=== PATIENT | male | born 1960 | race Caucasian/White ===

== ENCOUNTER 2017-03-22 09:05 | Emergency (ER) | payer MEDICARE, OTHER ==
[~2017-03-22] VITALS: Ht 177.8 cm; Wt 75.0 kg
[~2017-03-22 09:05] MED LIST: ATOR40TA16 PO; BENZ1TAB PO; BUSP5TAB PO; CYMB60CA PO; DULO1CAP2 PO; SAPH10SU3 SL; SERO400T PO; TRAZ50TA12 PO; VENTAER INH; VIAG100T PO
[2017-03-22 09:06] VITALS: BP 135/86; TEMP 98.2; O2SAT 99
[2017-03-22 09:24] VITALS: BP 135/86; PULSE 101; RESP 14; TEMP 98.2; O2SAT 99
--- NOTE | 2017-03-22 09:37 | PD ---
HPI Chief Complaint: Back/ Neck Pain or Injury Time Seen by Provider: 09:26 Travel History International Travel<30 days: No Contact w/Intl Traveler<30days: No Traveled to known affect area: No History of Present Illness HPI 56-year-old male presents to the department with one week history of ongoing lower back pain and spasm. Patient states he helped a friend move 12 sheets of 5/8ths inch sheet rock a week ago, which developed into his current problem. He denies weakness, tingling, or radicular pain in either leg. Pain however is worse this morning upon awakening. He is having difficulty ambulating secondary to discomfort and spasm. He states he can not stand completely upright. His pain is currently an 8 out of 10. He is been trying [id number] medications topically without improvement. He has no known drug allergies. PFSH Past Medical History Bipolar Disorder: Yes Anxiety: Yes Depression: Yes High Cholesterol: Yes Hepatitis: Yes (c) Social History Alcohol Use: No Tobacco Use: Yes (ppd) Substance Use: No Allergies-Medications (Allergen,Severity, Reaction): Coded Allergies: No Known Allergies (Unverified , 03/22/17) Reported Meds & Prescriptions Reported Meds & Active Scripts Active Orphenadrine CR (Orphenadrine Citrate) 100 Mg Tab 100 Mg PO Q12HR Ibuprofen 800 Mg Tab 800 Mg PO Q8H PRN Reported Duloxetine DR (Duloxetine HCl) 30 Mg Capdr 30 Mg PO DAILY Cymbalta DR (Duloxetine HCl) 60 Mg Capdr 60 Mg PO HS Trazodone (Trazodone HCl) 50 Mg Tab 50 Mg PO HS Viagra (Sildenafil Citrate) 100 Mg Tab 100 Mg PO DAILY PRN Seroquel (Quetiapine Fumarate) 400 Mg Tab 800 Mg PO HS Buspirone (Buspirone HCl) 5 Mg Tab 15 Mg PO BID 30 Days Benztropine (Benztropine Mesylate) 1 Mg Tab 1 Mg PO DAILY Atorvastatin (Atorvastatin Calcium) 40 Mg Tab 40 Mg PO DAILY Saphris (Asenapine) 10 Mg Subl 10 Mg SL DAILY Ventolin Hfa 18 GM Inh (Albuterol Sulfate) 90 Mcg/Act Aer 2 Puff INH Q4H PRN Review of Systems Except as stated in HPI: all other systems reviewed are Neg General / Constitutional: No: Fever Eyes: No: Visual changes HENT: No: Headaches Cardiovascular: No: Chest Pain or Discomfort Respiratory: No: Shortness of Breath Gastrointestinal: No: Abdominal Pain Genitourinary: No: Dysuria Musculoskeletal: Positive: Myalgias, Limited ROM, Pain Skin: No Rash Neurologic: No: Weakness Psychiatric: No: Depression Endocrine: No: Polydipsia Hematologic/Lymphatic: No: Easy Bruising Physical Exam Narrative GENERAL: Patient appears in mild to moderate distress. SKIN: Warm and dry. Normal color. Normal turgor. No rash. HEAD: Atraumatic. Normocephalic. EYES: Pupils equal and round. No scleral icterus. No injection or drainage. ENT: No nasal bleeding or discharge. Mucous membranes pink and moist. NECK: Trachea midline. Supple and nontender. CARDIOVASCULAR: Regular rate and rhythm. RESPIRATORY: No accessory muscle use. Clear to auscultation. Breath sounds equal bilaterally. MUSCULOSKELETAL: Extremities without clubbing, cyanosis, or edema. No obvious deformities. Patient has no midline bony tenderness of the lumbar spine, however has bilateral soft tissue tenderness with spasm in the lower lumbar and sacral areas. Straight leg raise pain is negative bilaterally. He is able to dorsiflex and plantarflex normally. Range of motion of the lower lumbar spine is limited secondary to pain only. NEUROLOGICAL: Awake and alert. No obvious cranial nerve deficits. Motor grossly within normal limits. Five out of 5 muscle strength in the arms and legs. Normal speech. PSYCHIATRIC: Appropriate mood and affect; insight and judgment normal. Data Data Last Documented VS Vital Signs Date Time Temp Pulse Resp B/P Pulse Ox O2 Delivery O2 Flow Rate FiO2 03/22/17 09:24 98.2 101 14 135/86 99 MDM Medical Decision Making Medical Screen Exam Complete: Yes Emergency Medical Condition: Yes Differential Diagnosis Lower lumbar strain. Lumbago. Muscle spasm. Narrative Course Patient is medically stable at time of exam. Radiographic imaging is not felt warranted based on the patient's history and physical. Patient will be treated on an outpatient basis with Norflex 100 mg twice a day # 10. Patient also given ibuprofen 800 mg 3 times daily with food. #30. Patient take extra strength Tylenol as well in addition to the above medications. Recommend heat, ice, and stretching as discussed. Patient follow local primary care physician or return to ED with worsening symptoms as needed. Diagnosis Primary Impression: Strain of lumbar region Qualified Code: S39.012A - Strain of lumbar region, initial encounter Referrals: Primary Care Physician Patient Instructions: Acute Low Back Pain (ED), General Instructions, Lower Back Exercises (ED), Muscle Spasm (ED) Additional Instructions: Radiographic imaging is not felt warranted based on the patient's history and physical. Patient will be treated on an outpatient basis with Norflex 100 mg twice a day # 10. Patient also given ibuprofen 800 mg 3 times daily with food. #30. Patient take extra strength Tylenol as well in addition to the above medications. Recommend heat, ice, and stretching as discussed. Patient follow local primary care physician or return to ED with worsening symptoms as needed. Med/Other Pt SpecificInfo: Prescription(s) given Scripts Orphenadrine ER 12 HR (Orphenadrine CR)100 Mg [id number] Mg PO Q12HR #10 TAB Prov:Shima Vazquez MD 03/22/17 Ibuprofen 800 Mg [id number] Mg PO Q8H PRN (Pain/Inflammation) #30 TAB Prov:Shima Vazquez MD 03/22/17 Disposition: 01 DISCHARGE HOME Condition: Stable Be Tony Mar 22, 2017 09:37
[2017-03-22] MEDS ORDERED: ORPH100T99 PO (09:39)
[2017-03-22] MEDS ORDERED: IBUP800T23 PO (09:39)
== END 2017-03-22 10:32 | disposition home or self-care (01) ==
LOC: NEPK 09:05
DX: S39.012A Strain of muscle, fascia and tendon of lower back, initial encounter (principal); F31.9 Bipolar disorder, unspecified; E78.00 Pure hypercholesterolemia, unspecified; F17.210 Nicotine dependence, cigarettes, uncomplicated; X50.0XXA Overexertion from strenuous movement or load, initial encounter; Y93.89 Activity, other specified; Y92.9 Unspecified place or not applicable
CPT/HCPCS: 99283

== ENCOUNTER → 2017-04-11 | Outpatient (CLI) | payer MEDICARE, OTHER ==
[~2017-04-11] MED LIST changes: -BENZ1TAB PO; +IBUP800T23 PO; +ORPH100T99 PO
--- NOTE | 2017-04-12 10:33 | RSPPFT ---
DATE OF PROCEDURE: 04/11/17 COMMENTS: Spirometry with FVC of 4.9, FEV1 of 3.2, FEV1/FVC ratio is normal. Frontal, lateral and oblique is decreased at FEF 25, FEF 50, FEF 75 and FEF 25-75. There is no response after bronchodilator treatment. Lung volumes show residual volume is increased. TLC is normal. Diffusion capacity is mildly decreased. Flow volume loop indicates terminal airways obstruction. IMPRESSION: 1. Mild small airways obstructive lung disease. 2. No response after bronchodilator treatment. 3. Lung volumes show hyperinflation. 4. Mild decrease in diffusion capacity
== END ==
LOC: PHRSP 08:11
PROVIDERS: ATTEND Internal Medicine
DX: J44.9 Chronic obstructive pulmonary disease, unspecified (principal)
CPT/HCPCS: 94060; 94726; 94729

== ENCOUNTER 2017-04-30 08:04 | Emergency (ER) | payer MEDICARE, OTHER ==
[~2017-04-30] VITALS: Ht 177.8 cm; Wt 73.0 kg
[2017-04-30 08:05] VITALS: BP 116/86; PULSE 92; RESP 20; TEMP 98.2; O2SAT 97
--- NOTE | 2017-04-30 08:40 | PD ---
HPI Chief Complaint: Skin Problem Time Seen by Provider: 08:34 Travel History International Travel<30 days: No Contact w/Intl Traveler<30days: No Traveled to known affect area: No History of Present Illness HPI 56-year-old male presents to the ER today with one-day history of raised nodules on his arms, legs, and back area that he states he just noticed overnight. He states they are very itchy and mildly tender. He denies any fevers, shortness of breath, or any other symptoms. He states that he had been using a weed whacker to cut weed a few days ago and did not notice any rash at that time. He denies any previous history of such rash. He denies any other exposures. Modifying Factors: None Associated Signs & Symptoms: Skin rash, nodules Risk Factors: None PFSH Past Medical History Bipolar Disorder: Yes Anxiety: Yes Depression: Yes High Cholesterol: Yes Hepatitis: Yes (c) Social History Alcohol Use: No Tobacco Use: Yes (ppd) Substance Use: No Allergies-Medications (Allergen,Severity, Reaction): Coded Allergies: No Known Allergies (Unverified , 04/30/17) Reported Meds & Prescriptions Reported Meds & Active Scripts Active Orphenadrine CR (Orphenadrine Citrate) 100 Mg Tab 100 Mg PO Q12HR Ibuprofen 800 Mg Tab 800 Mg PO Q8H PRN Reported Duloxetine DR (Duloxetine HCl) 30 Mg Capdr 30 Mg PO DAILY Cymbalta DR (Duloxetine HCl) 60 Mg Capdr 60 Mg PO HS Trazodone (Trazodone HCl) 50 Mg Tab 50 Mg PO HS Viagra (Sildenafil Citrate) 100 Mg Tab 100 Mg PO DAILY PRN Seroquel (Quetiapine Fumarate) 400 Mg Tab 800 Mg PO HS Buspirone (Buspirone HCl) 5 Mg Tab 15 Mg PO BID 30 Days Atorvastatin (Atorvastatin Calcium) 40 Mg Tab 40 Mg PO DAILY Saphris (Asenapine) 10 Mg Subl 10 Mg SL DAILY Ventolin Hfa 18 GM Inh (Albuterol Sulfate) 90 Mcg/Act Aer 2 Puff INH Q4H PRN Review of Systems Except as stated in HPI: all other systems reviewed are Neg Physical Exam Narrative GENERAL: [Well-developed middle age white male patient currently in mild distress. Awake and oriented 3. SKIN: Focused skin assessment warm/dry. There are notable raise erythematous plaques measuring 2-5 cm on the arms, legs, and lower back area. Nonblanching and mildly tender to palpation. HEAD: Atraumatic. Normocephalic. EYES: Pupils equal and round. No scleral icterus. No injection or drainage. ENT: No nasal bleeding or discharge. Mucous membranes pink and moist. NECK: Trachea midline. No JVD. CARDIOVASCULAR: Regular rate and rhythm. No murmur appreciated. RESPIRATORY: No accessory muscle use. Clear to auscultation. Breath sounds equal bilaterally. GASTROINTESTINAL: Abdomen soft, non-tender, nondistended. Hepatic and splenic margins not palpable. MUSCULOSKELETAL: No obvious deformities. No clubbing. No cyanosis. No edema. NEUROLOGICAL: Awake and alert. No obvious cranial nerve deficits. Motor grossly within normal limits. Normal speech. PSYCHIATRIC: Appropriate mood and affect; insight and judgment normal. Data Data Last Documented VS Vital Signs Date Time Temp Pulse Resp B/P Pulse Ox O2 Delivery O2 Flow Rate FiO2 04/30/17 09:05 96 Room Air 04/30/17 08:05 98.2 92 20 116/86 Orders Complete Blood Count With Diff (04/30/17 08:34) Comprehensive Metabolic Panel (04/30/17 08:34) Ecg Monitoring (04/30/17 08:34) Iv Access Insert/Monitor (04/30/17 08:34) Oximetry (04/30/17 08:34) Diphenhydramine Inj (Benadryl Inj) (04/30/17 08:45) Methylprednisolone So Succ Inj (Solumedr (04/30/17 08:45) Sodium Chloride 0.9% Flush (Ns Flush) (04/30/17 08:45) Labs Laboratory Tests Test 04/30/17 08:45 White Blood Count 9.8 TH/MM3 Red Blood Count 4.85 MIL/MM3 Hemoglobin 14.6 GM/DL Hematocrit 42.8 % Mean Corpuscular Volume 88.2 FL Mean Corpuscular Hemoglobin 30.1 PG Mean Corpuscular Hemoglobin 34.1 % Concent Red Cell Distribution Width 14.0 % Platelet Count 189 TH/MM3 Mean Platelet Volume 9.3 FL Neutrophils (%) (Auto) 78.2 % Lymphocytes (%) (Auto) 13.6 % Monocytes (%) (Auto) 6.6 % Eosinophils (%) (Auto) 1.1 % Basophils (%) (Auto) 0.5 % Neutrophils # (Auto) 7.7 TH/MM3 Lymphocytes # (Auto) 1.3 TH/MM3 Monocytes # (Auto) 0.6 TH/MM3 Eosinophils # (Auto) 0.1 TH/MM3 Basophils # (Auto) 0.0 TH/MM3 CBC Comment DIFF FINAL Differential Comment Sodium Level 136 MEQ/L Potassium Level 4.1 MEQ/L Chloride Level 106 MEQ/L Carbon Dioxide Level 23.1 MEQ/L Anion Gap 7 MEQ/L Blood Urea Nitrogen 13 MG/DL Creatinine 0.89 MG/DL Estimat Glomerular Filtration 88 ML/MIN Rate Random Glucose 99 MG/DL Calcium Level 9.1 MG/DL Total Bilirubin 0.7 MG/DL Aspartate Amino Transf 18 U/L (AST/SGOT) Alanine Aminotransferase 19 U/L (ALT/SGPT) Alkaline Phosphatase 96 U/L Total Protein 7.3 GM/DL Albumin 3.9 GM/DL [facility] Medical Decision Making Medical Screen Exam Complete: Yes Emergency Medical Condition: Yes Medical Record Reviewed: Yes Interpretation(s) Laboratory Tests Test 04/30/17 08:45 Neutrophils (%) (Auto) 78.2 % (16.0-70.0) Estimat Glomerular Filtration 88 ML/MIN (>89) Rate Differential Diagnosis Erythematous nodules, rashurticaria versus erythema nodosum versus allergic reaction versus drug eruption Narrative Course Patient was given Benadryl and Solu-Medrol in the ER. Vital signs are stable in the ER. He has no mucous membrane involvement or respiratory symptoms. At this point, I do not see any signs of worsening in symptoms after observation period in the ER. My plan would be to release the patient with follow-up to primary care physician. We will give him continued steroids and Benadryl. Return for any worsening in symptoms as necessary. The plan has been discussed with him and he states understanding. Diagnosis Primary Impression: Urticaria Med/Other Pt SpecificInfo: Prescription(s) given Scripts Methylprednisolone Dosepak (Medrol Dosepak)4 Mg Dspk4 Mg PO DIRECTED #1 DSPK Ref 0 Per Pharmacist direction Prov:Marissa Tom MD 04/30/17 Diphenhydramine HCl (Benadryl Allergy)25 Mg [id number] Mg PO QID PRN (ALLERGIC REACTION) #20 Prov:Marissa Tom MD 04/30/17 Disposition: 01 DISCHARGE HOME Condition: Stable Marissa Tom MD Apr 30, 2017 08:40
[2017-04-30] MEDS ORDERED: methylPREDNISolone SOD SUCC 125 MG/2 ML VIAL IVP ONE (08:45)
[2017-04-30] MEDS ORDERED: diphenhydrAMINE HCL 50 MG/ML VIAL IVP ONE (08:45)
[2017-04-30] MEDS ORDERED: SODIUM CHLORIDE 0.9% FLUSH 10 ML FLUSH IV FLUSH PRN (08:45)
[2017-04-30 09:05] VITALS: O2SAT 96
[2017-04-30 09:06] LABS: AUTOMATED NEUTROPHIL # 7.7 TH/MM3 (1.8-7.7); BASOPHIL % 0.5 % (0.0-2.0); EOSINOPHIL # 0.1 TH/MM3 (0-0.4); EOSINOPHIL % 1.1 % (0.0-4.0); HEMATOCRIT 42.8 % (39.0-51.0); HEMO FLAGS DIFF FINAL; LYMPH % 13.6 % (9.0-44.0); LYMPHOCYTE # 1.3 TH/MM3 (1.0-4.8); MEAN CELL VOLUME 88.2 FL (80.0-100.0); MEAN CORPUSCULAR HEMOGLOBIN 30.1 PG (27.0-34.0); MEAN CORPUSCULAR HGB CONC 34.1 % (32.0-36.0); MONO % 6.6 % (0.0-8.0); NEUT % 78.2 % (16.0-70.0); PLATELET COUNT 189 TH/MM3 (150-450); RED BLOOD COUNT 4.85 MIL/MM3 (4.50-5.90); WHITE BLOOD COUNT 9.8 TH/MM3 (4.0-11.0)
[2017-04-30 09:19] LABS: ALT (GPT) 19 U/L (12-78); ANION GAP 7 MEQ/L (5-15); AST (GOT) 18 U/L (15-37); BICARBONATE 23.1 MEQ/L (21.0-32.0); BLOOD UREA NITROGEN 13 MG/DL (7-18); CHLORIDE 106 MEQ/L (98-107); GLOMERULAR FILTRATION RATE 88 ML/MIN (>89); POTASSIUM 4.1 MEQ/L (3.5-5.1); SODIUM (NA) 136 MEQ/L (136-145)
[2017-04-30 09:22] LABS: ALKALINE PHOSPHATASE 96 U/L (45-117); TOTAL BILIRUBIN ADULT 0.7 MG/DL (0.2-1.0)
[2017-04-30] MEDS ORDERED: MEDR4PAK PO (09:36)
[2017-04-30] MEDS ORDERED: BENA25TA6 PO (09:36)
== END 2017-04-30 10:22 | disposition home or self-care (01) ==
LOC: NEPC 08:04
DX: L50.9 Urticaria, unspecified (principal); F31.9 Bipolar disorder, unspecified; F41.9 Anxiety disorder, unspecified; E78.00 Pure hypercholesterolemia, unspecified; B19.20 Unspecified viral hepatitis C without hepatic coma; F17.200 Nicotine dependence, unspecified, uncomplicated; Z79.899 Other long term (current) drug therapy
CPT/HCPCS: 80053; 85025; 96374; 96375; 99284; J1200; J2930

== ENCOUNTER → 2017-05-01 | Outpatient (CLI) | payer MEDICARE ==
[~2017-05-01] MED LIST changes: +BENA25TA6 PO; +MEDR4PAK PO
--- NOTE | 2017-05-01 19:02 | EKG ---
Date Performed: 05/01/2017 Time Performed: 08:54:06 PTAGE: 56 years EKG: Sinus rhythm NORMAL ECG NO PREVIOUS TRACING DOCTOR: Qamar Pak Interpretating Date/Time 05/01/2017 19:01:21
== END ==
LOC: HCAV 08:41
PROVIDERS: ATTEND Internal Medicine
DX: Z13.6 Encounter for screening for cardiovascular disorders (principal)
CPT/HCPCS: 93005

== ENCOUNTER 2017-12-13 05:04 | Inpatient (IN) | payer MEDICARE, MEDICAID, OTHER ==
[~2017-12-13] VITALS: Ht 175.3 cm; Wt 63.0 kg
[2017-12-13] VITALS (32 sets, daily range): BP systolic 78–165; BP diastolic 55–92; PULSE 63–123; RESP 12–18; TEMP 97.6–98.6; O2SAT 91–100
[~2017-12-13 05:04] MED LIST changes: +IBUP1TAB7 PO; -IBUP800T23 PO; +ORPH100T2 PO; -ORPH100T99 PO
[2017-12-13] MEDS ORDERED: ETOMIDATE 40 MG/20 ML VIAL ONE (05:28)
[2017-12-13] MEDS ORDERED: SODIUM CHLORIDE 0.9% FLUSH 10 ML FLUSH IVF PRN (05:30)
[2017-12-13] MEDS ORDERED: SUCCINYLCHOLINE CHLORIDE 200 MG/10 ML VIAL ONE (05:30)
[2017-12-13] MEDS ORDERED: PROPOFOL 500 MG/50 ML INJ 50 ML ONE (05:38)
[2017-12-13 05:44] LABS: AUTOMATED NEUTROPHIL # 8.5 TH/MM3 (1.8-7.7); BASOPHIL % 0.2 % (0.0-2.0); EOSINOPHIL % 0.4 % (0.0-4.0); HEMATOCRIT 38.9 % (39.0-51.0); HEMOGLOBIN 13.4 GM/DL (13.0-17.0); LYMPH % 15.4 % (9.0-44.0); LYMPHOCYTE # 1.7 TH/MM3 (1.0-4.8); MEAN CELL VOLUME 90.3 FL (80.0-100.0); MEAN CORPUSCULAR HGB CONC 34.4 % (32.0-36.0); MONO % 5.3 % (0.0-8.0); MONOCYTE # 0.6 TH/MM3 (0-0.9); NEUT % 78.7 % (16.0-70.0); PLATELET COUNT 201 TH/MM3 (150-450); RED BLOOD COUNT 4.31 MIL/MM3 (4.50-5.90); RED CELL DISTRIBUTION WIDTH 12.7 % (11.6-17.2); WHITE BLOOD COUNT 10.8 TH/MM3 (4.0-11.0)
[2017-12-13] MEDS ORDERED: ETOMIDATE 20 MG/10 ML VIAL IV PUSH ONE (05:45)
[2017-12-13] MEDS ORDERED: SUCCINYLCHOLINE CHLORIDE 100 MG/5 ML SYRINGE IV PUSH ONE (05:45)
[2017-12-13] MEDS ORDERED: ACTIVATED CHARCOAL LIQUID 25 GM/120 ML BTL NG ONE (05:45)
[2017-12-13] MEDS: PROPOFOL 1000 MG/100 ML INJ 100 ML IV PRN ×4 (05:50→18:49)
[2017-12-13] MEDS ORDERED: SODIUM CHLOR 0.9% 1000 ML INJ 1,000 ML IV ONE ×2 (06:00)
[2017-12-13] MEDS ORDERED: SODIUM CHLOR 0.9% 1000 ML INJ 1,000 ML IV SCH (06:00)
[2017-12-13 06:03] LABS: ALBUMIN 3.8 GM/DL (3.4-5.0); ALT (GPT) 13 U/L (12-78); AST (GOT) 16 U/L (15-37); BICARBONATE 20.6 MEQ/L (21.0-32.0); BLOOD UREA NITROGEN 6 MG/DL (7-18); CALCIUM 8.2 MG/DL (8.5-10.1); CHLORIDE 105 MEQ/L (98-107); CREATININE 0.76 MG/DL (0.60-1.30); GLOMERULAR FILTRATION RATE 106 ML/MIN (>89); GLUCOSE,RANDOM 119 MG/DL (74-106); SODIUM (NA) 137 MEQ/L (136-145)
[2017-12-13 06:04] LABS: BACTERIA, URINE RARE /hpf; BILIRUBIN, URINE NEG (NEG); BLOOD, URINE TRACE (NEG); GLUCOSE,URINE NEG (NEG); HYALINE CAST, URINE 1 /lpf (RARE); KETONE, URINE NEG (NEG); NITRITE,URINE NEG (NEG); URINE COLOR LIGHT-YELLOW (YELLW/STRAW); URINE LEUKOCYTE ESTERASE NEG (NEG)
[2017-12-13 06:06] LABS: ACETAMINOPHEN LESS THAN 2.0 MCG/ML (10.0-30.0); ALKALINE PHOSPHATASE 83 U/L (45-117); TOTAL BILIRUBIN ADULT 0.5 MG/DL (0.2-1.0); TOTAL PROTEIN 7.1 GM/DL (6.4-8.2)
--- NOTE | 2017-12-13 06:15 | RADRPT ---
EXAM DATE/TIME: 12/13/2017 05:45 [facility] COMPARISON: No previous studies available for comparison. INDICATIONS : E-T and O-G tube placement. Syncope MEDICAL HISTORY : None. SURGICAL HISTORY : None. ENCOUNTER: Initial ACUITY: 1 day PAIN SCORE: Non-responsive. LOCATION: Bilateral chest FINDINGS: A single AP supine view of the chest was obtained and demonstrates a nasogastric tube seen coursing t hrough the esophagus into the stomach. The endotracheal tube is not well-visualized and the tip is lo cated at the level of the thoracic inlet. There are no confluent infiltrates or effusions. The heart and mediastinal structures are within normal limits. The soft tissues and bony thorax are unremarkabl e. CONCLUSION: 1. Interval intubation and placement of nasogastric tube. 2. No acute cardiopulmonary disease. Nilesh Barclay MD on December 13, 2017 at 6:09 Board Certified Radiologist. This report was verified electronically.
--- NOTE | 2017-12-13 06:37 | PD ---
HPI Chief Complaint: OD/ Ingestion Time Seen by Provider: 05:25 Travel History International Travel<30 days: No (CHANI) Contact w/Intl Traveler<30days: No (CHANI) Traveled to known affect area: No (CHANI) History of Present Illness HPI Patient is a 57-year-old male who left a suicide note today saying by 2 mother and girlfriend. And took a overdose of Seroquel plus other unknown psych medications. Patient comes in he was alert when the paramedics arrived at his house however he became very somnolent en route and when he arrived to the ER he was in a bizarre paradoxical kind of way his eyes are open but he is not answering my questions he is normally responsive vitals are within normal limits at this time but his tachycardia paradoxical breathing and inability inability to answer questions feels airway is a danger he needs stabilization activated charcoal and admission to the ICU with multiple EKGs review of systems and history of present illness is unable to be obtained because he is very intoxicated with ingestion of unknown substances PFSH Past Medical History Medical History: Unable to Obtain Bipolar Disorder: Yes Anxiety: Yes Depression: Yes High Cholesterol: Yes Hepatitis: Yes (c) Tetanus Vaccination: Unknown Past Surgical History Surgical History: Unable to Obtain Social History Alcohol Use: No Tobacco Use: Yes (ppd) Substance Use: No Allergies-Medications (Allergen,Severity, Reaction): Coded Allergies: No Known Allergies (Unverified Allergy, Unknown, 12/13/17) Reported Meds & Prescriptions Reported Meds & Active Scripts Active Medrol Dosepak (Methylprednisolone) 4 Mg Dspk 4 Mg PO DIRECTED Per Pharmacist direction Benadryl Allergy (Diphenhydramine HCl) 25 Mg Tablet 25 Mg PO QID PRN Orphenadrine CR (Orphenadrine Citrate) 100 Mg Tab 100 Mg PO Q12HR Ibuprofen 800 Mg Tab 800 Mg PO Q8H PRN Reported Duloxetine DR (Duloxetine HCl) 30 Mg Capdr 30 Mg PO DAILY Cymbalta DR (Duloxetine HCl) 60 Mg Capdr 60 Mg PO HS Trazodone (Trazodone HCl) 50 Mg Tab 50 Mg PO HS Viagra (Sildenafil Citrate) 100 Mg Tab 100 Mg PO DAILY PRN Seroquel (Quetiapine Fumarate) 400 Mg Tab 800 Mg PO HS Buspirone (Buspirone HCl) 5 Mg Tab 15 Mg PO BID 30 Days Atorvastatin (Atorvastatin Calcium) 40 Mg Tab 40 Mg PO DAILY Saphris (Asenapine) 10 Mg Subl 10 Mg SL DAILY Ventolin Hfa 18 GM Inh (Albuterol Sulfate) 90 Mcg/Act Aer 2 Puff INH Q4H PRN Review of Systems ROS Limitations: Altered Mental Status, Other: (severely sedated from an overdose of Seroquel plus other psych meds) Except as stated in HPI: all other systems reviewed are Neg Physical Exam Narrative GENERAL: Patient is very somnolent eyes are open however he is not answering questions appears very sedate from ingestion unknown medication SKIN: Warm and dry. HEAD: Atraumatic. Normocephalic. EYES: Pupils equal and round. No scleral icterus. No injection or drainage. Eyes are open extraocular motions are intact bilateral ENT: No nasal bleeding or discharge. Mucous membranes pink and moist. NECK: Trachea midline. No JVD. CARDIOVASCULAR: Tachycardic rate 123 bpm RESPIRATORY: Patient is using subcostal muscles to breathe increased respiratory rate. Almost paradoxical muscle movement with breathing GASTROINTESTINAL: Abdomen soft, non-tender, nondistended. Hepatic and splenic margins not palpable. MUSCULOSKELETAL: Extremities without clubbing, cyanosis, or edema. No obvious deformities. NEUROLOGICAL: No focal deficits at this time however he is severely sedated overdosed on tranquilizers and on unknown sedating meds. Patient localizes pain will go to the [place] into his penis Data Data Last Documented VS Vital Signs Date Time Temp Pulse Resp B/P (MAP) Pulse Ox O2 Delivery O2 Flow Rate FiO2 12/13/17 05:43 107 16 165/85 (111) 100 Ventilator 100 12/13/17 05:32 2.00 12/13/17 05:21 97.9 Orders Orders Complete Blood Count With Diff (12/13/17 05:25) Comprehensive Metabolic Panel (12/13/17 05:25) Urinalysis - C+S If Indicated (12/13/17 05:25) Chest, Single Ap (12/13/17 05:25) Ct Brain W/O Iv Contrast(Rout) (12/13/17 05:25) Iv Access Insert/Monitor (12/13/17 05:25) Ecg Monitoring (12/13/17 05:25) Oximetry (12/13/17 05:25) Sodium Chloride 0.9% Flush (Ns Flush) (12/13/17 05:30) Drug Screen, Random Urine (12/13/17 05:25) Alcohol (Ethanol) (12/13/17 05:25) Salicylates (Aspirin) (12/13/17 05:25) Tylenol (Acetaminophen) (12/13/17 05:25) Etomidate Inj (Amidate Inj) (12/13/17 05:28) Succinylcholine Inj (Quelicin Inj) (12/13/17 05:30) Propofol 500 Mg/50 Ml Inj (Diprivan 500 (12/13/17 05:38) Etomidate Inj (Amidate Inj) (12/13/17 05:45) Propofol 1000 Mg/100 Ml Inj (Diprivan 10 (12/13/17 05:45) Charcoal Activated Liq (Actidose-Aqua Li (12/13/17 05:45) Admit Order (Ed Use Only) (12/13/17 05:45) Succinylcholine Inj (Quelicin Inj) (12/13/17 05:45) Labs Laboratory Tests Test 12/13/17 05:30 White Blood Count 10.8 TH/MM3 Red Blood Count 4.31 MIL/MM3 Hemoglobin 13.4 GM/DL Hematocrit 38.9 % Mean Corpuscular Volume 90.3 FL Mean Corpuscular Hemoglobin 31.0 PG Mean Corpuscular Hemoglobin Concent 34.4 % Red Cell Distribution Width 12.7 % Platelet Count 201 TH/MM3 Mean Platelet Volume 9.0 FL Neutrophils (%) (Auto) 78.7 % Lymphocytes (%) (Auto) 15.4 % Monocytes (%) (Auto) 5.3 % Eosinophils (%) (Auto) 0.4 % Basophils (%) (Auto) 0.2 % Neutrophils # (Auto) 8.5 TH/MM3 Lymphocytes # (Auto) 1.7 TH/MM3 Monocytes # (Auto) 0.6 TH/MM3 Eosinophils # (Auto) 0.0 TH/MM3 Basophils # (Auto) 0.0 TH/MM3 CBC Comment DIFF FINAL Differential Comment Urine Color LIGHT-YELLOW Urine Turbidity CLEAR Urine pH 7.0 Urine Specific [place] 1.003 Urine Protein NEG mg/dL Urine Glucose (UA) NEG mg/dL Urine Ketones NEG mg/dL Urine Occult Blood TRACE Urine Nitrite NEG Urine Bilirubin NEG Urine Urobilinogen LESS THAN 2.0 MG/DL Urine Leukocyte Esterase NEG Urine RBC 1 /hpf Urine WBC LESS THAN 1 /hpf Urine Bacteria RARE /hpf Urine Hyaline Casts 1 /lpf Microscopic Urinalysis Comment CULT NOT INDICATED Blood Urea Nitrogen 6 MG/DL Creatinine 0.76 MG/DL Random Glucose 119 MG/DL Total Protein 7.1 GM/DL Albumin 3.8 GM/DL Calcium Level 8.2 MG/DL Alkaline Phosphatase 83 U/L Aspartate Amino Transf (AST/SGOT) 16 U/L Alanine Aminotransferase (ALT/SGPT) 13 U/L Total Bilirubin 0.5 MG/DL Sodium Level 137 MEQ/L Potassium Level 3.2 MEQ/L Chloride Level 105 MEQ/L Carbon Dioxide Level 20.6 MEQ/L Anion Gap 11 MEQ/L Estimat Glomerular Filtration Rate 106 ML/MIN Salicylates Level 6.4 MG/DL Urine Opiates Screen NEG Acetaminophen Level LESS THAN 2.0 MCG/ML Urine Barbiturates Screen NEG Urine Amphetamines Screen NEG Urine Benzodiazepines Screen NEG Urine Cocaine Screen POS Urine Cannabinoids Screen NEG Ethyl Alcohol Level 45 MG/DL MDM Medical Decision Making Medical Screen Exam Complete: Yes Emergency Medical Condition: Yes Differential Diagnosis Ingestion of multiple substances including Seroquel versus polysubstance abuse and intoxication. Versus intentional overdose of substances with intent to kill himself. Left a suicide note. Versus suicidal gesture versus accidental suicidal overdose Narrative Course Patient is breathing irregularly he is not waking up his eyes are open but he is not responding is tachycardic he needs to be given activated charcoal however his airway is not stable enough for them to tolerate that risk of aspiration is too high any to intubate him given NG tube given activated charcoal given 2 L of fluid and then 2 50 cc an hour to wash out the substances protect his kidneys absorbed with activated charcoal and admitted to ICU [place] is placed for U tox as well as Tylenol levels acetaminophen levels and salicylate levels alcohol level all sent and waiting for results his stabilize this time sedated with etomidate and succinylcholine and intubated with RSI no complications 8.0 tube passed patient is stabilized on propofol drip at 10 mics per caper minute and admitted to the ICU Dr. Wild takes report Critical Care Narrative Critical care time is 30 minutes stabilizing intubating getting activated charcoal. The NG tube in 2 L resuscitation report to the ICU attending RSI intubation checking ET tube checking the x-ray checking the NG tube assuring patient is stable sedating the patient with propofol admitted to the ICU Procedures Procedure Narrative Intubation procedure note are size used first attempt passed the 8.0 ET tube without application see is sedated with etomidate 20 and succinylcholine 100 mg ET tube is passed good color change on the car [place] and patient's chest x-ray shows that ET tube is in the airway NG tube in the stomach. Patient tolerated the procedure and no side effects and no consultations Diagnosis Primary Impression: Overdose Qualified Codes: T50.902A - Poisoning by unspecified drugs, medicaments and biological substances, intentional self-harm, initial encounter Admitting Information Admitting Physician Requests: Vitaliy Moore MD Dec 13, 2017 06:37
[2017-12-13] MEDS ORDERED: ACETAMINOPHEN 325 MG TAB PO PRN (07:00)
[2017-12-13] MEDS ORDERED: PROPOFOL 1000 MG/100 ML INJ 100 ML IV PRN (07:00)
[2017-12-13] MEDS ORDERED: CHLORHEXIDINE GLUCONATE 2 % 1 PACK (2 CLOTHS) TOP PRN (07:00)
[2017-12-13] MEDS ORDERED: SODIUM CHLORIDE 0.9% FLUSH 10 ML FLUSH IV FLUSH PRN (07:00)
[2017-12-13] MEDS ORDERED: MISCELLANEOUS NURSING INFORMATION XX SCH (07:00)
[2017-12-13] MEDS ORDERED: RESP: ALBUTEROL 2.5 MG/IPRATROPIUM 0.5 MG NEB (PRN) INH (07:00)
[2017-12-13] MEDS: CHLORHEXIDINE 0.12% (ORAL KIT) 15 ML CUP MT SCH ×2 (08:00→19:59)
[2017-12-13] MEDS: SODIUM CHLOR 0.9% 1000 ML INJ 1,000 ML IV SCH ×3 (08:08→21:56)
[2017-12-13] MEDS: RESP: ALBUTEROL 2.5 MG/IPRATROPIUM 0.5 MG NEB (SCH) NEB ×3 (08:17→20:31)
--- NOTE | 2017-12-13 08:30 | RADRPT ---
EXAM DATE/TIME: 12/13/2017 08:05 [facility] COMPARISON: No previous studies available for comparison. INDICATIONS : Altered mental status RADIATION DOSE: 36.16 CTDIvol (mGy) MEDICAL HISTORY : Non-responsive. SURGICAL HISTORY : Non-responsive. ENCOUNTER: Initial ACUITY: 1 day PAIN SCALE: Non-responsive LOCATION: Bilateral cranial TECHNIQUE: Multiple contiguous axial images were obtained of the head. Using automated exposure control and adj ustment of the mA and/or kV according to patient size, radiation dose was kept as low as reasonably a chievable to obtain optimal diagnostic quality images. DICOM format image data is available electro nically for review and comparison. FINDINGS: CEREBRUM: The ventricles are normal for age. No evidence of midline shift, mass lesion, hemorrhage or acute in farction. No extra-axial fluid collections are seen. POSTERIOR FOSSA: The cerebellum and brainstem are intact. The 4th ventricle is midline. The cerebellopontine angle i s unremarkable. EXTRACRANIAL: The visualized portion of the orbits is intact. SKULL: The calvaria is intact. No evidence of skull fracture. CONCLUSION: No acute disease. Leroy Ceja Jr., MD on December 13, 2017 at 8:27 Board Certified Radiologist. This report was verified electronically.
[2017-12-13] MEDS: ENOXAPARIN SODIUM 40 MG/0.4 ML SYRINGE SQ SCH (09:47)
[2017-12-13] MEDS: FAMOTIDINE 20 MG/2 ML VIAL IV PUSH SCH ×2 (09:47→19:58)
[2017-12-13] MEDS: SODIUM CHLORIDE 0.9% FLUSH 10 ML FLUSH IV FLUSH SCH ×2 (09:48→19:58)
--- NOTE | 2017-12-13 11:12 | HHI.HP ---
HPI Service Critical Care Medicine Primary Care Physician Unknown Admission Diagnosis OVERDOSE Diagnosis: Travel History International Travel<30 Days: No (CHANI) Contact w/Intl Traveler <30 Da: No (CHANI) Traveled to Known Affected Are: No (CHANI) History of Present Illness History of Present Illness HPI Patient is a 57-year-old male who left a suicide note today and took a overdose of Seroquel plus other unknown psych medications. Patient was alert when the paramedics arrived at his house however he became very somnolent en route and when he arrived to the ER he was in a bizarre paradoxical kind of way his eyes are open but he was not answering questions. In view of worsening mental status and an attic breathing patient was intubated by ER physician and placed on mechanical ventilation. He had an NG tube placed and was given activated charcoal as well. She was accepted for admission by critical care medicine service. When I evaluated the patient in the ER he was sedated with propofol, orally intubated on mechanical ventilation. History was obtained by reviewing records and discussion with ER physician. Patient was also noted to be positive for cocaine on his urine drug screen. Allergies-Medications Allergies-Medications (Allergen,Severity, Reaction): Coded Allergies: No Known Allergies (Unverified Adverse Reaction, Unknown, 12/13/17) Reported Meds & Prescriptions Reported Meds & Active Scripts Active Medrol Dosepak (Methylprednisolone) 4 Mg Dspk 4 Mg PO DIRECTED Per Pharmacist direction Benadryl Allergy (Diphenhydramine HCl) 25 Mg Tablet 25 Mg PO QID PRN Orphenadrine CR (Orphenadrine Citrate) 100 Mg Tab 100 Mg PO Q12HR Ibuprofen 800 Mg Tab 800 Mg PO Q8H PRN Reported Duloxetine DR (Duloxetine HCl) 30 Mg Capdr 30 Mg PO DAILY Cymbalta DR (Duloxetine HCl) 60 Mg Capdr 60 Mg PO HS Trazodone (Trazodone HCl) 50 Mg Tab 50 Mg PO HS Viagra (Sildenafil Citrate) 100 Mg Tab 100 Mg PO DAILY PRN Seroquel (Quetiapine Fumarate) 400 Mg Tab 800 Mg PO HS Buspirone (Buspirone HCl) 5 Mg Tab 15 Mg PO BID 30 Days Atorvastatin (Atorvastatin Calcium) 40 Mg Tab 40 Mg PO DAILY Saphris (Asenapine) 10 Mg Subl 10 Mg SL DAILY Ventolin Hfa 18 GM Inh (Albuterol Sulfate) 90 Mcg/Act Aer 2 Puff INH Q4H PRN ROS Review of Systems ROS Limitations: Altered Mental Status, Other: (severely sedated from an overdose of Seroquel plus other psych meds) Except as stated in HPI: all other systems reviewed are Neg Review of Systems ROS Limitations: Clinical Condition, Intoxication, Altered Mental Status Past Family Social History Allergies: Coded Allergies: No Known Allergies (Unverified Allergy, Unknown, 12/13/17) Past Medical History Past Medical History Medical History: Unable to Obtain Bipolar Disorder: Yes Anxiety: Yes Depression: Yes High Cholesterol: Yes Hepatitis: Yes (c) Tetanus Vaccination: Unknown Past Surgical History Surgical History: Unable to Obtain Reported Medications To be clarified Social History Alcohol Use: No Tobacco Use: Yes (ppd) Substance Use: No Physical Exam Vital Signs Vital Signs Date Time Temp Pulse Resp B/P (MAP) Pulse Ox O2 Delivery O2 Flow Rate FiO2 12/13/17 10:55 12/13/17 10:29 88 143/92 (109) 12/13/17 09:50 83 12 153/84 (107) 98 Ventilator 30 12/13/17 08:15 99 100 12/13/17 08:05 87 18 143/89 (107) 100 Ventilator 30 12/13/17 07:53 99 30 12/13/17 07:04 72 15 112/59 (76) 99 Ventilator 40.00 12/13/17 06:49 40 12/13/17 06:31 77 138/70 (92) 100 Ventilator 12/13/17 06:29 98.6 79 150/81 (104) 100 Ventilator 12/13/17 06:04 91 16 153/81 (105) 100 Ventilator 12/13/17 05:43 107 16 165/85 (111) 100 Ventilator 100 12/13/17 05:39 123 14 160/77 (104) 100 Ventilator 100 12/13/17 05:37 100 12/13/17 05:37 100 100 12/13/17 05:32 121 14 91 Nasal Cannula 2.00 12/13/17 05:29 91 Nasal Cannula 3.00 12/13/17 05:21 97.9 101 16 101/63 (76) 95 Physical Exam HEENT/ Neuro: Sedated, orally intubated, Pallor present, no icterus, tongue/ mucosa dry Neck: No JVD Chest/Pulm: on mech vent, good air entry bilaterally, no wheezing or crackles CVS: S1-S2 regular, no murmur GI/abdomen: soft, nontender, bowel sounds sluggish Extremities: warm bilaterally, no edema Laboratory Laboratory Tests Test 12/13/17 05:30 12/13/17 06:20 White Blood Count 10.8 Red Blood Count 4.31 Hemoglobin 13.4 Hematocrit 38.9 Mean Corpuscular Volume 90.3 Mean Corpuscular Hemoglobin 31.0 Mean Corpuscular Hemoglobin Concent 34.4 Red Cell Distribution Width 12.7 Platelet Count 201 Mean Platelet Volume 9.0 Neutrophils (%) (Auto) 78.7 Lymphocytes (%) (Auto) 15.4 Monocytes (%) (Auto) 5.3 Eosinophils (%) (Auto) 0.4 Basophils (%) (Auto) 0.2 Neutrophils # (Auto) 8.5 Lymphocytes # (Auto) 1.7 Monocytes # (Auto) 0.6 Eosinophils # (Auto) 0.0 Basophils # (Auto) 0.0 CBC Comment DIFF FINAL Differential Comment Urine Color LIGHT-YELLOW Urine Turbidity CLEAR Urine pH 7.0 Urine Specific Barnes 1.003 Urine Protein NEG Urine Glucose (UA) NEG Urine Ketones NEG Urine Occult Blood TRACE Urine Nitrite NEG Urine Bilirubin NEG Urine Urobilinogen LESS THAN 2.0 Urine Leukocyte Esterase NEG Urine RBC 1 Urine WBC LESS THAN 1 Urine Bacteria RARE Urine Hyaline Casts 1 Microscopic Urinalysis Comment CULT NOT INDICATED Blood Urea Nitrogen 6 Creatinine 0.76 Random Glucose 119 Total Protein 7.1 Albumin 3.8 Calcium Level 8.2 Alkaline Phosphatase 83 Aspartate Amino Transf (AST/SGOT) 16 Alanine Aminotransferase (ALT/SGPT) 13 Total Bilirubin 0.5 Sodium Level 137 Potassium Level 3.2 Chloride Level 105 Carbon Dioxide Level 20.6 Anion Gap 11 Estimat Glomerular Filtration Rate 106 Salicylates Level 6.4 Urine Opiates Screen NEG Acetaminophen Level LESS THAN 2.0 Urine Barbiturates Screen NEG Urine Amphetamines Screen NEG Urine Benzodiazepines Screen NEG Urine Cocaine Screen POS Urine Cannabinoids Screen NEG Ethyl Alcohol Level 45 Blood Gas Puncture Site RT RADIAL Blood Gas Patient Temperature 98.6 Blood Gas HCO3 19 Blood Gas Base Excess -5.9 Blood Gas Oxygen Saturation 91 Arterial Blood pH 7.31 Arterial Blood Partial Pressure CO2 39 Arterial Blood Partial Pressure O2 543 Arterial Blood Oxygen Content 15.6 Arterial Blood Carboxyhemoglobin 8.4 Arterial Blood Methemoglobin 0.8 Blood Gas Hemoglobin 11.1 Oxygen Delivery Device VENTILATOR Blood Gas Ventilator Setting PRVC/AC Blood Gas Inspired Oxygen 100 Result Diagram: 12/13/1752912/13/17529 Imaging Last Impressions Head CT 12/13/17524 Signed Impressions: Service Date/Time: November 08:05 - CONCLUSION: No acute disease. Leroy Ceja Jr., MD Chest X-Ray 12/13/17524 Signed Impressions: Service Date/Time: November 05:45 - CONCLUSION: 1. Interval intubation and placement of nasogastric tube. 2. No acute cardiopulmonary disease. Nilesh Barclay MD Capjuanito VTE Risk Assessment Caprini VTE Risk Assessment: Mod/High Risk (score >= 2) Caprini Risk Assessment Model Point Value = 1 Point Value = 2 Point Value = 3 Point Value = 5 Age 41-60 Minor surgery BMI > 25 kg/m2 Swollen legs Varicose veins or History of unexplained or recurrent spontaneous Oral contraceptives or hormone replacement Sepsis (< 1 month) Serious lung disease, including pneumonia (< 1 month) Abnormal pulmonary function Acute myocardial infarction Congestive heart failure (< 1 month) History of inflammatory bowel disease Medical patient at bed rest Age 61-74 Arthroscopic surgery Major open surgery (> 45 min) Laparoscopic surgery (> 45 min) Malignancy Confined to bed (> 72 hours) Immobilizing plaster cast Central venous access Age >= 75 History of VTE Family history of VTE Factor V Leiden Prothrombin [id number] Lupus anticoagulant Anticardiolipin antibodies Elevated serum homocysteine Heparin-induced thrombocytopenia Other congenital or acquired thrombophilia Stroke (< 1 month) Elective arthroplasty Hip, pelvis, or leg fracture Acute spinal cord injury (< 1 month) Prophylaxis Regimen Total Risk Factor Score Risk Level Prophylaxis Regimen 0-1 Low Early ambulation 2 Moderate Order ONE of the following: *Sequential Compression Device (SCD) *Heparin 5000 units SQ BID 3-4 Higher Order ONE of the following medications: *Heparin 5000 units SQ TID *Enoxaparin/Lovenox 40 mg SQ daily (WT < 150 kg, CrCl > 30 mL/min) *Enoxaparin/Lovenox 30 mg SQ daily (WT < 150 kg, CrCl > 10-29 mL/min) *Enoxaparin/Lovenox 30 mg SQ BID (WT < 150 kg, CrCl > 30 mL/min) AND/OR *Sequential Compression Device (SCD) 5 or more Highest Order ONE of the following medications: *Heparin 5000 units SQ TID (Preferred with Epidurals) *Enoxaparin/Lovenox 40 mg SQ daily (WT < 150 kg, CrCl > 30 mL/min) *Enoxaparin/Lovenox 30 mg SQ daily (WT < 150 kg, CrCl > 10-29 mL/min) *Enoxaparin/Lovenox 30 mg SQ BID (WT < 150 kg, CrCl > 30 mL/min) AND *Sequential Compression Device (SCD) Assessment and Plan Assessment and Plan 57-year-old male with: Suicidal overdose with Seroquel Cocaine positive Encephalopathy Acute respiratory failure on mechanical ventilation Plan: Neuro: Sedation with propofol. Daily sedation vacation. Follow neuro status. Psych consult when extubated for further evaluation. Cardiovascular: IV hydration, watch for hypotension. Pulmonary: Continue mechanical ventilation, vent bundle, bronchodilators as needed. GI/liver: Keep nothing by mouth for now. Received activated charcoal earlier to decrease absorption of Seroquel. Renal/: IV hydration, strict intake output, monitor and replete electrolytes, follow BUN/creatinine ID: No indication for antibiotics at this time. Heme: Follow CBC and coags Endocrine: Watch for hyperglycemia, SSI for glycemic control if needed. Prophylaxis: Pepcid/SCDs/Lovenox. Condition critical Time spent on critical care excluding procedures 50 minutes Joel Stark MD Dec 13, 2017 11:12
[2017-12-13] MEDS ORDERED: MAGNESIUM OXIDE 400 MG TAB PO PRN (17:15)
[2017-12-13] MEDS ORDERED: MAGNESIUM SULFATE INJ 4 GM in SODIUM CHLORIDE 0.9% INJ 92 ML IV PRN (17:15)
[2017-12-13] MEDS ORDERED: POTASSIUM CHLORIDE 25 MEQ EFFERVESCENT TAB PO PRN (17:15)
[2017-12-13] MEDS ORDERED: POTASSIUM PHOSPHATE MONOBASIC 500 MG TAB PO/TUBE PRN (17:15)
[2017-12-13] MEDS ORDERED: SODIUM PHOSPHATE INJ 30 MMOL in SODIUM CHLOR 0.9% 250 ML INJ 240 ML IV PRN (17:15)
[2017-12-13] MEDS ORDERED: POTASSIUM PHOSPHATE MONOBASIC 500 MG TAB PO PRN (17:15)
[2017-12-13] MEDS ORDERED: POTASSIUM CHLOR 40 MEQ PREMIX 100 ML IV PRN ×2 (17:15)
[2017-12-13] MEDS ORDERED: POTASSIUM CHLOR 20 MEQ PREMIX 100 ML IV PRN (17:15)
[2017-12-13] MEDS ORDERED: POTASSIUM PHOSPHATE INJ 30 MMOL in SODIUM CHLOR 0.9% 250 ML INJ 250 ML IV PRN (17:15)
[2017-12-13] MEDS ORDERED: MAGNESIUM SULFATE INJ 2 GM in SODIUM CHLORIDE 0.9% INJ 96 ML IV PRN (17:15)
[2017-12-13] MEDS: POTASSIUM CHLOR 20 MEQ PREMIX 100 ML IV PRN ×4 (17:40→23:59)
--- NOTE | 2017-12-13 20:17 | EKG ---
Date Performed: 12/13/2017 Time Performed: 05:23:20 PTAGE: 57 years EKG: SINUS TACHYCARDIA WITH OCCASIONAL SUPRAVENTRICULAR PREMATURE COMPLEXES When compared to pre vious tracing, the patient is now Tachycardic. ABNORMAL RHYTHM ECG PREVIOUS TRACING : 05/01/2017 08.54.06 DOCTOR: Giovanna Aguilera Interpretating Date/Time 12/13/2017 20:15:38
--- NOTE | 2017-12-13 20:17 | EKG ---
Date Performed: 12/13/2017 Time Performed: 07:40:38 PTAGE: 57 years EKG: Sinus rhythm When compared to previous tracing, the patient is no longer Tachycardic. NORMAL ECG PREVIOUS TRACING : 12/13/2017 05.23 DOCTOR: Giovanna Aguilera Interpretating Date/Time 12/13/2017 20:16:22
[2017-12-14] VITALS (23 sets, daily range): BP systolic 89–121; BP diastolic 61–86; PULSE 71–104; RESP 13–18; TEMP 97.8–99.6; O2SAT 99–100
[2017-12-14] MEDS: PROPOFOL 1000 MG/100 ML INJ 100 ML IV PRN (00:40)
[2017-12-14] MEDS: CHLORHEXIDINE GLUCONATE 2 % 1 PACK (2 CLOTHS) TOP SCH (03:11)
[2017-12-14] MEDS: RESP: ALBUTEROL 2.5 MG/IPRATROPIUM 0.5 MG NEB (SCH) NEB ×4 (03:39→19:53)
[2017-12-14 05:30] LABS: AUTOMATED NEUTROPHIL # 4.7 TH/MM3 (1.8-7.7); BASOPHIL % 0.3 % (0.0-2.0); EOSINOPHIL # 0.1 TH/MM3 (0-0.4); EOSINOPHIL % 1.5 % (0.0-4.0); HEMOGLOBIN 12.6 GM/DL (13.0-17.0); LYMPH % 21.4 % (9.0-44.0); LYMPHOCYTE # 1.5 TH/MM3 (1.0-4.8); MEAN CELL VOLUME 91.9 FL (80.0-100.0); MEAN CORPUSCULAR HEMOGLOBIN 31.3 PG (27.0-34.0); MEAN CORPUSCULAR HGB CONC 34.1 % (32.0-36.0); MEAN PLATELET VOLUME 9.3 FL (7.0-11.0); MONO % 8.4 % (0.0-8.0); MONOCYTE # 0.6 TH/MM3 (0-0.9); NEUT % 68.4 % (16.0-70.0); PLATELET COUNT 155 TH/MM3 (150-450); RED BLOOD COUNT 4.03 MIL/MM3 (4.50-5.90); RED CELL DISTRIBUTION WIDTH 13.4 % (11.6-17.2); WHITE BLOOD COUNT 6.9 TH/MM3 (4.0-11.0)
[2017-12-14 05:53] LABS: ALKALINE PHOSPHATASE 85 U/L (45-117); ALT (GPT) 10 U/L (12-78); AST (GOT) 13 U/L (15-37); BICARBONATE 24.9 MEQ/L (21.0-32.0); BLOOD UREA NITROGEN 5 MG/DL (7-18); CALCIUM 8.1 MG/DL (8.5-10.1); CHLORIDE 118 MEQ/L (98-107); CREATININE 0.77 MG/DL (0.60-1.30); GLOMERULAR FILTRATION RATE 104 ML/MIN (>89); GLUCOSE,RANDOM 90 MG/DL (74-106); SODIUM (NA) 147 MEQ/L (136-145); TOTAL BILIRUBIN ADULT 0.4 MG/DL (0.2-1.0); TOTAL PROTEIN 5.9 GM/DL (6.4-8.2)
[2017-12-14] MEDS: SODIUM CHLOR 0.9% 1000 ML INJ 1,000 ML IV SCH (06:53)
[2017-12-14] MEDS: ENOXAPARIN SODIUM 40 MG/0.4 ML SYRINGE SQ SCH (07:39)
[2017-12-14] MEDS: SODIUM CHLORIDE 0.9% FLUSH 10 ML FLUSH IV FLUSH SCH ×2 (07:40→20:43)
[2017-12-14] MEDS: FAMOTIDINE 20 MG/2 ML VIAL IV PUSH SCH ×2 (07:40→20:43)
[2017-12-14] MEDS: CHLORHEXIDINE 0.12% (ORAL KIT) 15 ML CUP MT SCH ×2 (07:40→20:00)
--- NOTE | 2017-12-14 11:53 | HHI.CCPN ---
Subjective Remarks/Hospital Course Patient is a 57-year-old male who left a suicide note today and took a overdose of Seroquel plus other unknown psych medications. Patient was alert when the paramedics arrived at his house however he became very somnolent en route and when he arrived to the ER he was in a bizarre paradoxical kind of way his eyes are open but he was not answering questions. In view of worsening mental status and an attic breathing patient was intubated by ER physician and placed on mechanical ventilation. He had an NG tube placed and was given activated charcoal as well. She was accepted for admission by critical care medicine service. When I evaluated the patient in the ER he was sedated with propofol, orally intubated on mechanical ventilation. History was obtained by reviewing records and discussion with ER physician. Patient was also noted to be positive for cocaine on his urine drug screen. 12/14 Patient remains sedated and intubated. Afebrile. Objective Vital Signs Date Time Temp Pulse Resp B/P (MAP) Pulse Ox O2 Delivery O2 Flow Rate FiO2 12/14/17 10:00 90 12/14/17 09:29 100 30 12/14/17 08:00 98.8 18 115/77 (90) 12/13/17 09:50 Ventilator 12/13/17 07:04 40.00 Intake and Output 12/14/17 12/14/17 12/14/17 07:59 15:59 23:59 Intake Total 984 ml 41 ml Output Total 1450 ml 525 ml Balance -466 ml -484 ml Result Diagram: 12/14/17 0447 12/14/17 0447 Other Results Laboratory Tests Test 12/14/17 04:47 White Blood Count 6.9 TH/MM3 Red Blood Count 4.03 MIL/MM3 Hemoglobin 12.6 GM/DL Hematocrit 37.0 % Mean Corpuscular Volume 91.9 FL Mean Corpuscular Hemoglobin 31.3 PG Mean Corpuscular Hemoglobin Concent 34.1 % Red Cell Distribution Width 13.4 % Platelet Count 155 TH/MM3 Mean Platelet Volume 9.3 FL Neutrophils (%) (Auto) 68.4 % Lymphocytes (%) (Auto) 21.4 % Monocytes (%) (Auto) 8.4 % Eosinophils (%) (Auto) 1.5 % Basophils (%) (Auto) 0.3 % Neutrophils # (Auto) 4.7 TH/MM3 Lymphocytes # (Auto) 1.5 TH/MM3 Monocytes # (Auto) 0.6 TH/MM3 Eosinophils # (Auto) 0.1 TH/MM3 Basophils # (Auto) 0.0 TH/MM3 CBC Comment DIFF FINAL Differential Comment Blood Urea Nitrogen 5 MG/DL Creatinine 0.77 MG/DL Random Glucose 90 MG/DL Total Protein 5.9 GM/DL Albumin 3.0 GM/DL Calcium Level 8.1 MG/DL Alkaline Phosphatase 85 U/L Aspartate Amino Transf (AST/SGOT) 13 U/L Alanine Aminotransferase (ALT/SGPT) 10 U/L Total Bilirubin 0.4 MG/DL Sodium Level 147 MEQ/L Potassium Level 3.9 MEQ/L Chloride Level 118 MEQ/L Carbon Dioxide Level 24.9 MEQ/L Anion Gap 4 MEQ/L Estimat Glomerular Filtration Rate 104 ML/MIN Imaging Last Impressions Head CT 12/13/17524 Signed Impressions: Service Date/Time: November 08:05 - CONCLUSION: No acute disease. Leroy Ceja Jr., MD Chest X-Ray 12/13/17524 Signed Impressions: Service Date/Time: November 05:45 - CONCLUSION: 1. Interval intubation and placement of nasogastric tube. 2. No acute cardiopulmonary disease. Nilesh Barclay MD Objective Remarks GENERAL: Patient is 57 yo intubated and sedated SKIN: Warm and dry. HEAD: Normocephalic. EYES: No scleral icterus. No injection or drainage. NECK: Supple, trachea midline. No JVD or lymphadenopathy. CARDIOVASCULAR: Regular rate and rhythm without murmurs, gallops, or rubs. RESPIRATORY: Breath sounds equal bilaterally. No accessory muscle use. GASTROINTESTINAL: Abdomen soft, non-tender, nondistended. MUSCULOSKELETAL: No cyanosis, or edema. Neuro: Sedated and intubated A/P Assessment and Plan 57-year-old male with: VDRF Suicidal overdose with Seroquel Cocaine positive Encephalopathy ETOH use Plan: Neuro: On Diprivan infusion for sedation. Daily sedation vacation. Monitor neuro status. Psych consult when extubated for further evaluation. Place on Thiamine/Folic acid/MVI CV: Monitor HR and BP keep MAP>65mmHg Pulmo: Continue with vent support keep sat >92% vent bundle, bronchodilators, start SBT daily as nasra GI/liver: start tube feeds if remains intubated today. Received activated charcoal earlier to decrease absorption of Seroquel. Renal/: Monitor renal function, electrolytes replacement per protocol Change IVF D51/2NS@75ml/hr ID:Monitor for signs of infections ( fever, WBC) Heme: Follow CBC Endo: SSI for glycemic control if needed. GI/DVT prophylaxis - On pepcid and Lovenox SQ respectively Level 2 Clay Coe MD Dec 14, 2017 11:53
[2017-12-14] MEDS: MULTIVITAMIN TAB PO SCH (13:00)
[2017-12-14] MEDS: THIAMINE HCL 100 MG TAB PO SCH (13:00)
[2017-12-14] MEDS: FOLIC ACID 1 MG TAB PO SCH (13:00)
[2017-12-14] MEDS: DEXT 5%-NACL 0.45% 1000 ML INJ 1,000 ML IV SCH (17:30)
[2017-12-15] VITALS (17 sets, daily range): BP systolic 127–138; BP diastolic 81–89; PULSE 84–110; RESP 12–45; TEMP 98.9–100.5; O2SAT 93–100
[2017-12-15] MEDS: RESP: ALBUTEROL 2.5 MG/IPRATROPIUM 0.5 MG NEB (SCH) NEB ×4 (03:15→21:59)
[2017-12-15] MEDS: CHLORHEXIDINE GLUCONATE 2 % 1 PACK (2 CLOTHS) TOP SCH (04:00)
[2017-12-15] MEDS: DEXT 5%-NACL 0.45% 1000 ML INJ 1,000 ML IV SCH ×2 (05:14→21:24)
[2017-12-15 06:39] LABS: AUTOMATED NEUTROPHIL # 7.4 TH/MM3 (1.8-7.7); BASOPHIL % 0.1 % (0.0-2.0); EOSINOPHIL # 0.1 TH/MM3 (0-0.4); EOSINOPHIL % 0.7 % (0.0-4.0); HEMATOCRIT 38.7 % (39.0-51.0); HEMOGLOBIN 13.5 GM/DL (13.0-17.0); LYMPH % 11.2 % (9.0-44.0); MEAN CORPUSCULAR HEMOGLOBIN 31.3 PG (27.0-34.0); MEAN CORPUSCULAR HGB CONC 34.8 % (32.0-36.0); MEAN PLATELET VOLUME 9.1 FL (7.0-11.0); MONOCYTE # 0.6 TH/MM3 (0-0.9); PLATELET COUNT 173 TH/MM3 (150-450); RED CELL DISTRIBUTION WIDTH 13.2 % (11.6-17.2); WHITE BLOOD COUNT 9.1 TH/MM3 (4.0-11.0)
[2017-12-15 07:02] LABS: BICARBONATE 25.4 MEQ/L (21.0-32.0); CALCIUM 8.1 MG/DL (8.5-10.1); CREATININE 0.76 MG/DL (0.60-1.30); MAGNESIUM 2.2 MG/DL (1.5-2.5); PHOSPHORUS 2.9 MG/DL (2.5-4.9)
[2017-12-15] MEDS: CHLORHEXIDINE 0.12% (ORAL KIT) 15 ML CUP MT SCH ×2 (08:00→20:00)
[2017-12-15] MEDS: FAMOTIDINE 20 MG/2 ML VIAL IV PUSH SCH ×2 (08:47→20:35)
[2017-12-15] MEDS: SODIUM CHLORIDE 0.9% FLUSH 10 ML FLUSH IV FLUSH SCH ×2 (08:52→20:25)
[2017-12-15] MEDS: THIAMINE HCL 100 MG TAB PO SCH (08:52)
[2017-12-15] MEDS: MULTIVITAMIN TAB PO SCH (08:52)
[2017-12-15] MEDS: FOLIC ACID 1 MG TAB PO SCH (08:52)
[2017-12-15] MEDS: ENOXAPARIN SODIUM 40 MG/0.4 ML SYRINGE SQ SCH (08:52)
--- NOTE | 2017-12-15 10:16 | HHI.PR ---
Subjective Remarks Endeavored to see pt in response to psychiatric consultation request. Went to floor. Pt is intubated and sedated (although not presently receiving sedative medications per RN). Case d/w RN. Please reconsult psychiatry when patient is able to participate in psychiatric interview. Objective Exam Unable to perform MSE. Labs Test 12/14/17 12:55 12/15/17 05:06 Blood Gas Puncture Site RT RADIAL Blood Gas Patient Temperature 98.6 Blood Gas HCO3 23 mmol/L Blood Gas Base Excess -0.8 mmol/L Blood Gas Oxygen Saturation 93 % Arterial Blood pH 7.43 Arterial Blood Partial Pressure CO2 35 mmHg Arterial Blood Partial Pressure O2 73 mmHg Arterial Blood Oxygen Content 16.6 Vol % Arterial Blood Carboxyhemoglobin 1.3 % Arterial Blood Methemoglobin 1.3 % Blood Gas Hemoglobin 12.7 G/DL Oxygen Delivery Device VENTILATOR Blood Gas Ventilator Setting CPAP 5/5PS Blood Gas Inspired Oxygen 30 % White Blood Count 9.1 TH/MM3 Red Blood Count 4.30 MIL/MM3 Hemoglobin 13.5 GM/DL Hematocrit 38.7 % Mean Corpuscular Volume 90.0 FL Mean Corpuscular Hemoglobin 31.3 PG Mean Corpuscular Hemoglobin Concent 34.8 % Red Cell Distribution Width 13.2 % Platelet Count 173 TH/MM3 Mean Platelet Volume 9.1 FL Neutrophils (%) (Auto) 81.0 % Lymphocytes (%) (Auto) 11.2 % Monocytes (%) (Auto) 7.0 % Eosinophils (%) (Auto) 0.7 % Basophils (%) (Auto) 0.1 % Neutrophils # (Auto) 7.4 TH/MM3 Lymphocytes # (Auto) 1.0 TH/MM3 Monocytes # (Auto) 0.6 TH/MM3 Eosinophils # (Auto) 0.1 TH/MM3 Basophils # (Auto) 0.0 TH/MM3 CBC Comment DIFF FINAL Differential Comment Blood Urea Nitrogen 7 MG/DL Creatinine 0.76 MG/DL Random Glucose 100 MG/DL Calcium Level 8.1 MG/DL Phosphorus Level 2.9 MG/DL Magnesium Level 2.2 MG/DL Sodium Level 142 MEQ/L Potassium Level 3.5 MEQ/L Chloride Level 110 MEQ/L Carbon Dioxide Level 25.4 MEQ/L Anion Gap 7 MEQ/L Estimat Glomerular Filtration Rate 106 ML/MIN Vitals/IOs Vital Signs Date Time Temp Pulse Resp B/P (MAP) Pulse Ox O2 Delivery O2 Flow Rate FiO2 2/24/18 07:38 100 30 12/15/17 06:00 94 12/15/17 04:00 99.2 14 137/89 (105) 12/13/17 09:50 Ventilator 12/13/17 07:04 40.00 Intake and Output 12/15/17 12/15/17 12/15/17 07:59 15:59 23:59 Intake Total 644 ml Output Total 1250 ml Balance -606 ml Assessment & Plan Problem List: (1) Encounter for psychiatric assessment ICD Codes: Z76.89 - Persons encountering health services in other specified circumstances Assessment & Plan Reconsult psychiatry when patient is able to participate in interview. He remains under a [place]won Act, noted on patient's paper chart. Hunter Stark MD Dec 15, 2017 10:16
--- NOTE | 2017-12-15 12:20 | HHI.CCPN ---
Subjective Remarks/Hospital Course Patient is a 57-year-old male who left a suicide note today and took a overdose of Seroquel plus other unknown psych medications. Patient was alert when the paramedics arrived at his house however he became very somnolent en route and when he arrived to the ER he was in a bizarre paradoxical kind of way his eyes are open but he was not answering questions. In view of worsening mental status and an attic breathing patient was intubated by ER physician and placed on mechanical ventilation. He had an NG tube placed and was given activated charcoal as well. She was accepted for admission by critical care medicine service. When I evaluated the patient in the ER he was sedated with propofol, orally intubated on mechanical ventilation. History was obtained by reviewing records and discussion with ER physician. Patient was also noted to be positive for cocaine on his urine drug screen. 12/14 Patient remains sedated and intubated. Afebrile. Subjective: 12/15 On CPAP since yesterday. Currently 5/5 30% with RSBI in 20s. Purposeful movements with attempts to self extubate. Condom cath in place, have been bladder scanning and doing I/O cath for retention. Objective Vital Signs Date Time Temp Pulse Resp B/P (MAP) Pulse Ox O2 Delivery O2 Flow Rate FiO2 12/15/17 11:01 97 30 12/15/17 10:00 94 12/15/17 08:00 99.4 15 127/86 (100) 12/13/17 09:50 Ventilator 12/13/17 07:04 40.00 Intake and Output 12/15/17 12/15/17 12/16/17 08:00 16:00 00:00 Intake Total 644 ml Output Total 1250 ml Balance -606 ml Result Diagram: 12/15/17 0506 12/15/17 0506 Other Results Laboratory Tests Test 12/14/17 12:55 Blood Gas Puncture Site RT RADIAL Blood Gas Patient Temperature 98.6 Blood Gas HCO3 23 mmol/L (22-26) Blood Gas Base Excess -0.8 mmol/L (-2-2) Blood Gas Oxygen Saturation 93 % (90-100) Arterial Blood pH 7.43 (7.380-7.420) Arterial Blood Partial Pressure CO2 35 mmHg (38-42) Arterial Blood Partial Pressure O2 73 mmHg (61-120) Arterial Blood Oxygen Content 16.6 Vol % (12.0-20.0) Arterial Blood Carboxyhemoglobin 1.3 % (0-4) Arterial Blood Methemoglobin 1.3 % (0-2) Blood Gas Hemoglobin 12.7 G/DL (12.0-16.0) Oxygen Delivery Device VENTILATOR Blood Gas Ventilator Setting CPAP 5/5PS Blood Gas Inspired Oxygen 30 % Imaging Last Impressions Head CT 12/13/17524 Signed Impressions: Service Date/Time: November 08:05 - CONCLUSION: No acute disease. Leroy Ceja Jr., MD Chest X-Ray 12/13/17524 Signed Impressions: Service Date/Time: November 05:45 - CONCLUSION: 1. Interval intubation and placement of nasogastric tube. 2. No acute cardiopulmonary disease. Nilesh Barclay MD Objective Remarks Drips: D50.9 NacL @ 75 ml/hr. GENERAL: Patient is 57 yo intubated. Not on continuous sedation. SKIN: Warm and dry, well perfused. HEAD: Normocephalic. EYES: No scleral icterus. No injection or drainage. NECK: Supple, trachea midline. No JVD or lymphadenopathy. CARDIOVASCULAR: Regular rate and rhythm without murmurs, gallops, or rubs. RESPIRATORY: On CPAP appears reasonably comfortable with no accessory muscle use. Clear to auscultation bilaterally. GASTROINTESTINAL: Abdomen soft, non-tender, nondistended. OGT in place to gravity with charcoal in tubing. : Condom cath in place MUSCULOSKELETAL: No cyanosis, or edema. NEURO: Eyes open, follows commands BUE had squeeze. Moving BLE. A/P Assessment and Plan Plan: Neuro: Acute toxic metabolic encephalopathy due to multi-drug ingestion Seroquel overdose Cocaine abuse Suicidal tendencies EtOH abuse On Diprivan infusion for sedation. D/c Law enforcement placed on involuntary hold. Continue on Thiamine/Folic acid/MVI REconsult psych when he is able to participate. CV: Monitor HR and BP keep MAP>65mmHg Pulmo: Continue with vent support keep sat >92% Extubate 12/15. GI/liver: Received activated charcoal to decrease absorption of Seroquel. Bedside swallow eval and advance diet as appropriate Renal/: Urinary retention Likely secondary to drug ingestion. Bladder scan and I/o cath as needed. Monitor renal function, electrolytes replacement per protocol ID:Monitor for signs of infections ( fever, WBC) Heme: Follow CBC Endo: SSI for glycemic control if needed. GI/DVT prophylaxis - On pepcid and Lovenox SQ respectively ACCESS: PIV Family updated at bedside Level 3 followup Daxa Jin MD Dec 15, 2017 12:20
[2017-12-15 16:19] LABS: BILIRUBIN, URINE NEG (NEG); BLOOD, URINE MOD (NEG); GLUCOSE,URINE NEG (NEG); KETONE, URINE NEG (NEG); MUCUS URINE FEW /lpf (OCC); NITRITE,URINE NEG (NEG); SQUAMOUS EPITHELIAL CELL URINE <1 /hpf (0-5); URINE COLOR YELLOW (YELLW/STRAW); URINE LEUKOCYTE ESTERASE NEG (NEG)
[2017-12-15] MEDS ORDERED: ACETAMINOPHEN 650 MG SUPP RECTAL PRN (18:15)
[2017-12-16] VITALS (13 sets, daily range): BP systolic 100–132; BP diastolic 64–82; PULSE 91–113; RESP 30–43; TEMP 98.6–100.7; O2SAT 87–99
[2017-12-16] MEDS: CHLORHEXIDINE GLUCONATE 2 % 1 PACK (2 CLOTHS) TOP SCH (03:10)
[2017-12-16] MEDS: RESP: ALBUTEROL 2.5 MG/IPRATROPIUM 0.5 MG NEB (SCH) NEB ×4 (03:24→21:01)
[2017-12-16] MEDS: FAMOTIDINE 20 MG/2 ML VIAL IV PUSH SCH (08:31)
[2017-12-16] MEDS: THIAMINE HCL 100 MG TAB PO SCH (08:31)
[2017-12-16] MEDS: MULTIVITAMIN TAB PO SCH (08:31)
[2017-12-16] MEDS: FOLIC ACID 1 MG TAB PO SCH (08:31)
[2017-12-16] MEDS: ENOXAPARIN SODIUM 40 MG/0.4 ML SYRINGE SQ SCH (08:32)
[2017-12-16] MEDS: SODIUM CHLORIDE 0.9% FLUSH 10 ML FLUSH IV FLUSH SCH ×2 (08:32→20:33)
[2017-12-16] MEDS: CHLORHEXIDINE 0.12% (ORAL KIT) 15 ML CUP MT SCH ×2 (08:33→20:00)
[2017-12-16] MEDS: DEXT 5%-NACL 0.45% 1000 ML INJ 1,000 ML IV SCH (10:38)
[2017-12-16] MEDS ORDERED: diphenhydrAMINE HCL 25 MG CAP PO PRN (15:15)
[2017-12-16] MEDS ORDERED: NICOTINE 21 MG/24 HR PATCH T-DERMAL ONE (15:15)
--- NOTE | 2017-12-16 15:18 | HHI.CCPN ---
Subjective Remarks/Hospital Course Patient is a 57-year-old male who left a suicide note today and took a overdose of Seroquel plus other unknown psych medications. Patient was alert when the paramedics arrived at his house however he became very somnolent en route and when he arrived to the ER he was in a bizarre paradoxical kind of way his eyes are open but he was not answering questions. In view of worsening mental status and an attic breathing patient was intubated by ER physician and placed on mechanical ventilation. He had an NG tube placed and was given activated charcoal as well. She was accepted for admission by critical care medicine service. When I evaluated the patient in the ER he was sedated with propofol, orally intubated on mechanical ventilation. History was obtained by reviewing records and discussion with ER physician. Patient was also noted to be positive for cocaine on his urine drug screen. 12/14 Patient remains sedated and intubated. Afebrile. 12/15 On CPAP since yesterday. Currently 5/5 30% with RSBI in 20s. Purposeful movements with attempts to self extubate. Condom cath in place, have been bladder scanning and doing I/O cath for retention. Subjective 12/16: Resting in bed in no acute distress. On 3 L nasal cannula. Requesting nicotine patch. Psychiatry will be consulted as able to interact currently Objective Vital Signs Date Time Temp Pulse Resp B/P (MAP) Pulse Ox O2 Delivery O2 Flow Rate FiO2 12/16/17 14:00 93 12/16/17 12:00 99.4 43 122/73 (89) 99 12/16/17 07:31 Nasal Cannula 3.00 12/15/17 11:01 30 Intake and Output 12/16/17 12/16/17 12/17/17 08:00 16:00 00:00 Intake Total 751 ml 249 ml Output Total 1550 ml Balance -799 ml 249 ml Result Diagram: 12/15/17 0506 12/15/17 0506 Other Results Microbiology Date/Time Source Procedure Growth Status 12/15/17 19:12 Blood Peripheral Aerobic Blood Culture - Preliminary NO GROWTH IN 1 DAY Resulted 12/15/17 19:12 Blood Peripheral Anaerobic Blood Culture - Preliminary NO GROWTH IN 1 DAY Resulted Imaging Last Impressions Head CT 12/13/17 0591 Signed Impressions: Service Date/Time: November 08:05 - CONCLUSION: No acute disease. Leroy Ceja Jr., MD Chest X-Ray 12/13/17 0525 Signed Impressions: Service Date/Time: November 05:45 - CONCLUSION: 1. Interval intubation and placement of nasogastric tube. 2. No acute cardiopulmonary disease. Nilesh Barclay MD Objective Remarks GENERAL: 77-year-old male currently resting in bed on nasal cannula in no acute distress SKIN: Warm and dry, well perfused. HEAD: Normocephalic. EYES: No scleral icterus. No injection or drainage. NECK: Supple, trachea midline. No JVD or lymphadenopathy. CARDIOVASCULAR: Regular rate and rhythm S1, S2 no S4. Without murmurs, gallops, or rubs. RESPIRATORY: Clear to auscultation bilaterally without wheezes rales or rhonchi GASTROINTESTINAL: Abdomen soft, non-tender, nondistended. OGT in place to gravity with charcoal in tubing. MUSCULOSKELETAL: Significant peripheral edema. NEURO: Cranial nerves II through XII appear to be grossly intact. Strength is equal symmetric bilaterally. Normal sensation. Gait was not assessed. Urinary Catheter: No Assessment to: Continue Vascular Central Line Catheter: No Assessment to: Continue A/P Assessment and Plan Neuro/Psych: Acute toxic metabolic encephalopathy due to multi-drug ingestion Possible quetiapine overdose Cocaine abuse- -UDS + Suicidal deviation EtOH abuse - level 45 on admission Law enforcement placed on involuntary hold. Continue on Thiamine 100 mg daily/Folic acid 1 mg daily/MVI 1 tablet daily Monitor for DTs Reconsult psych today as patient is able to participate in discussion Restarting diphenhydramine 25 mg 4 times a day for irritation Restarting orphenadrine 100 mg twice a day/muscle relaxants Holding quetiapine 800 mg a night. Resume per psychiatry's recommendation Resume buspirone 15 mill grams twice a day/home medication Resuming duloxetine 30 mg by mouth daily. Possibly on 90 mg daily?. Per psychiatry Resume trazodone 50 mg daily at bedtime Hold Asenapine 10 mg sublingual daily. Per psychiatry's for restarting Holding ibuprofen 80 mg 3 times a day/home medication CT brain on admission revealed no acute intracranial findings CV: Dyslipidemia Monitor HR and BP keep MAP>65mmHg Discontinue IV fluids Continue atorvastatin 40 mg by mouth daily/home medication Pulm: Ongoing tobacco abuse Nasal cannula to maintain saturations greater than equal to 92% Incentive spirometry while awake Albuterol/ipratropium aerosols every 6 hours with albuterol aerosols every 2 hours. Dyspnea Patient is on a Ventolin inhaler at home every 6 hours Extubate 12/15. Chest x-ray on admission revealed no acute cardiopulmonary findings Start nicotine patch 21 mg daily self evaluation booklet for tobacco cessation provided GI/liver: History of hepatitis C -reportedly treated outpatient Received activated charcoal to decrease absorption of quetiapine Passed bedside swallow evaluation. Advance diet as tolerated Famotidine for GI prophylaxis Docusate sodium 100 mg by mouth twice a day for bowel regimen Renal/: Urinary retention Likely secondary to drug ingestion. Bladder scan and I/o cath as needed. [place] catheter placed yesterday. No today. Monitor renal function, electrolytes replacement per protocol ID: Monitor for signs of infections ( fever, WBC) Blood cultures no growth to date Heme: Follow CBC No indications for transfusion of blood proximal at this time Endo: SSI for glycemic control if needed. GI/DVT prophylaxis - On famotidine and enoxaparin 40 mg SQ daily for GI and DVT prophylaxis respectively ACCESS: PIV Level II follow-up Delroy Nowak MD Dec 16, 2017 15:18
[2017-12-16] MEDS: NICOTINE 21 MG/24 HR PATCH T-DERMAL SCH (15:51)
[2017-12-16] MEDS: FAMOTIDINE 20 MG TAB PO SCH (20:32)
[2017-12-16] MEDS: traZODone HCL 50 MG TAB PO SCH (20:32)
[2017-12-16] MEDS: busPIRone HCL 5 MG TAB PO SCH (20:32)
[2017-12-16] MEDS: DOCUSATE SODIUM 100 MG CAP PO SCH (20:32)
[2017-12-16] MEDS: ORPHENADRINE CITRATE 100 MG SUSTAINED RELEASE TAB PO SCH (23:31)
[2017-12-17] VITALS (30 sets, daily range): BP systolic 87–151; BP diastolic 53–76; PULSE 86–162; RESP 17–42; TEMP 98.8–99.8; O2SAT 98–100
[2017-12-17] MEDS: CHLORHEXIDINE GLUCONATE 2 % 1 PACK (2 CLOTHS) TOP SCH (03:21)
[2017-12-17] MEDS: RESP: ALBUTEROL 2.5 MG/IPRATROPIUM 0.5 MG NEB (SCH) NEB ×4 (03:34→20:20)
[2017-12-17 04:43] LABS: AUTOMATED NEUTROPHIL # 7.4 TH/MM3 (1.8-7.7); BASOPHIL % 0.4 % (0.0-2.0); EOSINOPHIL # 0.1 TH/MM3 (0-0.4); HEMATOCRIT 39.5 % (39.0-51.0); HEMOGLOBIN 13.7 GM/DL (13.0-17.0); LYMPH % 14.2 % (9.0-44.0); LYMPHOCYTE # 1.4 TH/MM3 (1.0-4.8); MEAN CELL VOLUME 90.2 FL (80.0-100.0); MEAN CORPUSCULAR HEMOGLOBIN 31.2 PG (27.0-34.0); MEAN CORPUSCULAR HGB CONC 34.6 % (32.0-36.0); MEAN PLATELET VOLUME 9.3 FL (7.0-11.0); MONO % 9.2 % (0.0-8.0); MONOCYTE # 0.9 TH/MM3 (0-0.9); NEUT % 75.2 % (16.0-70.0); PLATELET COUNT 189 TH/MM3 (150-450); RED BLOOD COUNT 4.38 MIL/MM3 (4.50-5.90); WHITE BLOOD COUNT 9.9 TH/MM3 (4.0-11.0)
[2017-12-17 05:12] LABS: ALBUMIN 3.4 GM/DL (3.4-5.0); ALKALINE PHOSPHATASE 94 U/L (45-117); ALT (GPT) 15 U/L (12-78); AST (GOT) 22 U/L (15-37); BICARBONATE 26.2 MEQ/L (21.0-32.0); BLOOD UREA NITROGEN 13 MG/DL (7-18); CHLORIDE 101 MEQ/L (98-107); CREATININE 0.97 MG/DL (0.60-1.30); GLOMERULAR FILTRATION RATE 80 ML/MIN (>89); GLUCOSE,RANDOM 88 MG/DL (74-106); MAGNESIUM 2.2 MG/DL (1.5-2.5); PHOSPHORUS 2.7 MG/DL (2.5-4.9); SODIUM (NA) 135 MEQ/L (136-145); TOTAL BILIRUBIN ADULT 0.9 MG/DL (0.2-1.0); TOTAL PROTEIN 7.5 GM/DL (6.4-8.2)
--- NOTE | 2017-12-17 06:01 | RADRPT ---
EXAM DATE/TIME: 12/17/2017 03:59 [facility] COMPARISON: CHEST SINGLE AP, December 13, 2017, 5:45. INDICATIONS : Shortness of breath, possible pulmonary disease. MEDICAL HISTORY : None. SURGICAL HISTORY : None. ENCOUNTER: Subsequent ACUITY: 4 - 6 days PAIN SCORE: Non-responsive. LOCATION: Bilateral chest FINDINGS: Patient has been extubated and NGT removed. No significant focal pleural or parenchymal opacities. Ca rdiomediastinal contours are within normal limits. Remainder of the exam is unchanged. CONCLUSION: 1. Status post extubation. 2. No acute abnormality. Javier Raygoza MD on December 17, 2017 at 6:00 Board Certified Radiologist. This report was verified electronically.
[2017-12-17] MEDS: CHLORHEXIDINE 0.12% (ORAL KIT) 15 ML CUP MT SCH (08:00)
[2017-12-17] MEDS: NICOTINE 21 MG/24 HR PATCH T-DERMAL SCH (08:21)
[2017-12-17] MEDS: busPIRone HCL 5 MG TAB PO SCH ×2 (08:22→20:37)
[2017-12-17] MEDS: ATORVASTATIN 40 MG TAB PO SCH (08:22)
[2017-12-17] MEDS: FAMOTIDINE 20 MG TAB PO SCH ×2 (08:23→20:37)
[2017-12-17] MEDS: MULTIVITAMIN TAB PO SCH (08:23)
[2017-12-17] MEDS: THIAMINE HCL 100 MG TAB PO SCH (08:23)
[2017-12-17] MEDS: DOCUSATE SODIUM 100 MG CAP PO SCH ×2 (08:23→20:37)
[2017-12-17] MEDS: ENOXAPARIN SODIUM 40 MG/0.4 ML SYRINGE SQ SCH (08:23)
[2017-12-17] MEDS: FOLIC ACID 1 MG TAB PO SCH (08:24)
[2017-12-17] MEDS: DULoxetine HCl DR 30 MG CAP PO SCH (08:26)
[2017-12-17] MEDS: ORPHENADRINE CITRATE 100 MG SUSTAINED RELEASE TAB PO SCH ×2 (08:36→12:45)
[2017-12-17] MEDS: SODIUM CHLORIDE 0.9% FLUSH 10 ML FLUSH IV FLUSH SCH (09:00)
[2017-12-17] MEDS: REMOVE OLD PATCH T-DERMAL SCH (09:00)
--- NOTE | 2017-12-17 09:23 | HHI.CCPN ---
Subjective Remarks/Hospital Course Patient is a 57-year-old male who left a suicide note today and took a overdose of Seroquel plus other unknown psych medications. Patient was alert when the paramedics arrived at his house however he became very somnolent en route and when he arrived to the ER he was in a bizarre paradoxical kind of way his eyes are open but he was not answering questions. In view of worsening mental status and an attic breathing patient was intubated by ER physician and placed on mechanical ventilation. He had an NG tube placed and was given activated charcoal as well. She was accepted for admission by critical care medicine service. When I evaluated the patient in the ER he was sedated with propofol, orally intubated on mechanical ventilation. History was obtained by reviewing records and discussion with ER physician. Patient was also noted to be positive for cocaine on his urine drug screen. 12/14 Patient remains sedated and intubated. Afebrile. 12/15 On CPAP since yesterday. Currently 5/5 30% with RSBI in 20s. Purposeful movements with attempts to self extubate. Condom cath in place, have been bladder scanning and doing I/O cath for retention. Subjective 12/16: Resting in bed in no acute distress. On 3 L nasal cannula. Requesting nicotine patch. Psychiatry will be consulted as able to interact currently 12/17 Patient is lying in bed in NAD. Awake and alert Objective Vital Signs Date Time Temp Pulse Resp B/P (MAP) Pulse Ox O2 Delivery O2 Flow Rate FiO2 12/17/17 08:00 99.3 95 22 100/73 (82) 100 12/16/17 21:03 21 12/16/17 07:31 Nasal Cannula 3.00 Intake and Output 12/17/17 12/17/17 12/18/17 08:00 16:00 00:00 Intake Total 300 ml Output Total 700 ml Balance -400 ml Result Diagram: 12/17/17 0335 12/17/17 0335 Other Results Laboratory Tests Test 12/17/17 03:35 White Blood Count 9.9 TH/MM3 Red Blood Count 4.38 MIL/MM3 Hemoglobin 13.7 GM/DL Hematocrit 39.5 % Mean Corpuscular Volume 90.2 FL Mean Corpuscular Hemoglobin 31.2 PG Mean Corpuscular Hemoglobin Concent 34.6 % Red Cell Distribution Width 13.0 % Platelet Count 189 TH/MM3 Mean Platelet Volume 9.3 FL Neutrophils (%) (Auto) 75.2 % Lymphocytes (%) (Auto) 14.2 % Monocytes (%) (Auto) 9.2 % Eosinophils (%) (Auto) 1.0 % Basophils (%) (Auto) 0.4 % Neutrophils # (Auto) 7.4 TH/MM3 Lymphocytes # (Auto) 1.4 TH/MM3 Monocytes # (Auto) 0.9 TH/MM3 Eosinophils # (Auto) 0.1 TH/MM3 Basophils # (Auto) 0.0 TH/MM3 CBC Comment DIFF FINAL Differential Comment Blood Urea Nitrogen 13 MG/DL Creatinine 0.97 MG/DL Random Glucose 88 MG/DL Total Protein 7.5 GM/DL Albumin 3.4 GM/DL Calcium Level 9.0 MG/DL Phosphorus Level 2.7 MG/DL Magnesium Level 2.2 MG/DL Alkaline Phosphatase 94 U/L Aspartate Amino Transf (AST/SGOT) 22 U/L Alanine Aminotransferase (ALT/SGPT) 15 U/L Total Bilirubin 0.9 MG/DL Sodium Level 135 MEQ/L Potassium Level 3.4 MEQ/L Chloride Level 101 MEQ/L Carbon Dioxide Level 26.2 MEQ/L Anion Gap 8 MEQ/L Estimat Glomerular Filtration Rate 80 ML/MIN Imaging Last Impressions Head CT 12/13/17524 Signed Impressions: Service Date/Time: November 08:05 - CONCLUSION: No acute disease. Leroy Ceja Jr., MD Chest X-Ray 12/13/17524 Signed Impressions: Service Date/Time: November 05:45 - CONCLUSION: 1. Interval intubation and placement of nasogastric tube. 2. No acute cardiopulmonary disease. Nilesh Barclay MD Objective Remarks GENERAL: 77-year-old male currently resting in bed on nasal cannula in no acute distress SKIN: Warm and dry, well perfused. HEAD: Normocephalic. EYES: No scleral icterus. No injection or drainage. NECK: Supple, trachea midline. No JVD or lymphadenopathy. CARDIOVASCULAR: Regular rate and rhythm S1, S2 no S4. Without murmurs, gallops, or rubs. RESPIRATORY: Clear to auscultation bilaterally without wheezes rales or rhonchi GASTROINTESTINAL: Abdomen soft, non-tender, nondistended. OGT in place to gravity with charcoal in tubing. MUSCULOSKELETAL: Significant peripheral edema. NEURO: Cranial nerves II through XII appear to be grossly intact. Strength is equal symmetric bilaterally. Normal sensation. Gait was not assessed. A/P Assessment and Plan Neuro/Psych: Acute toxic metabolic encephalopathy due to multi-drug ingestion Possible quetiapine overdose Cocaine abuse- -UDS + Suicidal deviation EtOH abuse - level 45 on admission Law enforcement placed on involuntary hold. Continue on Thiamine 100 mg daily/Folic acid 1 mg daily/MVI 1 tablet daily Monitor for DTs Psych is following On diphenhydramine 25 mg 4 times a day for irritation orphenadrine 100 mg twice a day/muscle relaxants Holding quetiapine 800 mg a night. Resume per psychiatry's recommendation buspirone 15 mill grams twice a day/home medication duloxetine 30 mg by mouth daily. Possibly on 90 mg daily?. Per psychiatry trazodone 50 mg daily at bedtime Hold Asenapine 10 mg sublingual daily. Per psychiatry's for restarting CT brain on admission revealed no acute intracranial findings CV: Dyslipidemia Monitor HR and BP keep MAP>65mmHg Continue atorvastatin 40 mg by mouth daily/home medication Pulm: Ongoing tobacco abuse Continue with oxygen keep sat> 92% Incentive spirometry while awake Albuterol/ipratropium aerosols every 6 hours with albuterol aerosols every 2 hours. Dyspnea Extubate 12/15. nicotine patch 21 mg daily GI/liver: History of hepatitis C -reportedly treated outpatient Received activated charcoal to decrease absorption of quetiapine On PO diet Famotidine for GI prophylaxis Docusate sodium 100 mg by mouth twice a day for bowel regimen Renal/: Urinary retention Monitor renal function, electrolytes replacement per protocol Will need K replacement today ID: Monitor for signs of infections ( fever, WBC) Blood cultures no growth to date Heme: Follow CBC No indications for transfusion of blood proximal at this time Endo: SSI for glycemic control if needed. GI/DVT prophylaxis - On famotidine and enoxaparin 40 mg SQ daily for GI and DVT prophylaxis respectively ACCESS: PIV Will sign off and transfer care to [facility] Level II follow-up Clay Coe MD Dec 17, 2017 09:23
--- NOTE | 2017-12-17 12:24 | PD.PSY.CON ---
Provisional Diagnosis Admission Date Dec 13, 2017 at 05:47 [place] I. Bipolar disorder type I, current episode depressed, alcohol and cocaine use disorder [place] II. Deferred [place] III. Hepatitis C, urinary retention History of Present Illness Service Psychiatry Consult Requested By Medicine Reason for Consult Suicidal attempt Primary Care Physician Unknown HPI The patient is a 57-year-old man, domiciled alone in [facility], single, unemployed, supported by [facility], with psychiatric history of bipolar disorder, alcohol and cocaine use disorder, 3 previous psychiatric hospitalizations, 4 suicidal attempts, last hospitalization was about 6 years ago, establish outpatient psychiatric care in [facility], he is on lithium 600 mg twice a day, Seroquel 800 mg, BuSpar 20 mg 3 times a day, Trazodone 100 mg hs, medical history of hepatitis C, brought to the hospital under [facility] act after a suicidal attempt by OD, he left a suicide note today and took a overdose of Seroquel plus other unknown psych medications. Patient was alert when the paramedics arrived at his house however he became very somnolent en route and when he arrived to the ER he was in a bizarre paradoxical kind of way his eyes are open but he was not answering questions. In view of worsening mental status and an attic breathing patient was intubated by ER physician and placed on mechanical ventilation. He had an NG tube placed and was given activated charcoal as well. He was accepted for admission by critical care medicine service. Consulted to psychiatry to address suicidal attempt. On psychiatric evaluation today patient is calm, cooperative with the interview. The patient reports that he had tried to end his life because he feels that there is no more purpose for him and is the reason for him to continue living. He cannot identify is single acute stressor for his depression and suicidal attempt. He says that he just feel he wants to . He says that for the last days she has been feeling hopeless, helpless, with poor motivation, with low energy, very pessimistic, and with frequent suicidal thoughts. Patient reports that he has not been taking his psychotropics as prescribed, I he has been mostly using alcohol every day and cocaine. At this moment, even though the patient contracted for safety in the hospital, he says that he continues to have suicidal ideation. He also reports episodic visual hallucinations of seeing people and at toilet in the ICU. He denies commanding type auditory hallucinations. Patient reports almost daily use of alcohol, as well as cocaine , denies other drugs Review of Systems Constitutional: DENIES: Diaphoretic episodes, Fatigue, Fever, Weight gain, Weight loss, Chills, Dizziness, Change in appetite, Night Sweats Endocrine: DENIES: Heat/cold intolerance, Polydipsia, Polyuria, Polyphagia Eyes: DENIES: Blurred vision, Diplopia, Eye inflammation, Eye pain, Vision loss , Photosensitivity, Double Vision Ears, nose, mouth, throat: DENIES: Tinnitus, Hearing loss, Vertigo, Nasal discharge, Oral lesions, Throat pain, Hoarseness, Ear Pain, Running Nose, Epistaxis, Sinus Pain, Toothache, Odynophagia Respiratory: DENIES: Apneas, Cough, Snoring, Wheezing, Hemoptysis, Sputum production, Shortness of breath Cardiovascular: DENIES: Chest pain, Palpitations, Syncope, Dyspnea on Exertion , PND, Lower Extremity Edema, Orthopnea, Claudication Gastrointestinal: DENIES: Abdominal pain, Black stools, Bloody stools, Constipation, Diarrhea, Nausea, Vomiting, Difficulty Swallowing, Anorexia Genitourinary: DENIES: Sexual dysfunction, Urinary frequency, Urinary incontinence, Urgency, Hematuria, Dysuria, Nocturia, Penile Discharge, Testicular Pain, Testicular Swelling Musculoskeletal: DENIES: Joint pain, Muscle aches, Stiffness, Joint Swelling, Back pain, Neck pain Integumentary: DENIES: Abnormal pigmentation, Nail changes, Pruritus, Rash Hematologic/lymphatic: DENIES: Bruising, Lymphadenopathy Immunologic/allergic: DENIES: Eczema, Urticaria Psychiatric: COMPLAINS OF: Depression, Suicidal Ideation, DENIES: Anxiety, Confusion, Mood changes, Hallucinations, Agitation, Homicidal Ideation, Delusions Past Family Social History Coded Allergies: No Known Allergies (Unverified Allergy, Unknown, 12/13/17) Active Scripts Methylprednisolone Dosepak (Medrol Dosepak) 4 Mg Dspk, 4 MG PO DIRECTED, #1 DSPK 0 Refills Per Pharmacist direction Prov:Marissa Tom MD 04/30/17 Diphenhydramine HCl (Benadryl Allergy) 25 Mg Tablet, 25 MG PO QID Y for ALLERGIC REACTION, #20 Prov:Marissa oTm MD 04/30/17 Orphenadrine ER 12 HR (Orphenadrine CR) 100 Mg Tab, 100 MG PO Q12HR for Muscle Spasm, #10 TAB Prov:Shima Vazquez MD 03/22/17 Ibuprofen (Ibuprofen) 800 Mg Tab, 800 MG PO Q8H Y for Pain/Inflammation, #30 TAB Prov:Shima Vazquez MD 03/22/[address] (Duloxetine DR) 30 Mg Capdr, 30 MG PO DAILY, #30 CAP 0 Refills 09/22/[address] (Cymbalta DR) 60 Mg Capdr, 60 MG PO HS, CAP 0 Refills 09/22/16 Sildenafil (Viagra) 100 Mg Tab, 100 MG PO DAILY Y for ERECTILE DYSFUNCTION, #30 TAB 0 Refills 09/22/16 Quetiapine (Seroquel) 400 Mg Tab, 800 MG PO HS, #30 TAB 0 Refills 09/22/16 Buspirone (Buspirone) 5 Mg Tab, 15 MG PO BID for Anxiety for 30 Days, TAB 0 Refills 09/22/16 Atorvastatin (Atorvastatin) 40 Mg Tab, 40 MG PO DAILY for Cholesterol Management , #30 TAB 0 Refills 09/22/16 Asenapine (Saphris) 10 Mg Subl, 10 MG SL DAILY, #60 TAB.SL 0 Refills 09/22/16 Albuterol 18 GM Inh (Ventolin Hfa 18 GM Inh) 90 Mcg/Act Aer, 2 PUFF INH Q4H Y for WHEEZING, #1 INHALER 0 Refills 09/22/16 Discontinued Reported Medications Trazodone (Trazodone) 50 Mg Tab, 50 MG PO HS for Control Depression, #30 TAB 0 Refills 09/22/16 Current Medications Medications (Trade) Dose Ordered Sig/Brigido Route Start Time Stop Time Status Last Admin (NS Flush) 2 ml UNSCH PRN IVF 12/13/17 05:30 (NS Flush) 2 ml UNSCH PRN IV FLUSH 12/13/17 07:00 (NS Flush) 2 ml BID IV FLUSH 12/13/17 09:00 12/17/17 09:00 (Tylenol) 650 mg Q6H PRN PO 12/13/17 07:00 (Peridex 0.12% Liq) 15 ml BID@08,20 MT 12/13/17 08:00 12/17/17 08:00 (Lovenox Inj) 40 mg Q24H SQ 12/13/17 08:00 12/17/17 08:23 Miscellaneous Information 1 Q361D XX 12/13/17 07:00 (Chlorhexidine 2% Cloth) 3 pack Taper DAILY@04 TOP 12/14/17 04:00 12/10/18 03:59 12/17/17 03:21 (Chlorhexidine 2% Cloth) 3 pack UNSCH PRN TOP 12/13/17 07:00 Potassium Chloride 100 ml @ 50 mls/hr Q2H PRN IV 12/13/17 17:15 Potassium Chloride 100 ml @ 50 mls/hr Q2H PRN IV 12/13/17 17:15 12/13/17 23:59 (K-Lyte Cl Eff) 50 meq UNSCH PRN PO 12/13/17 17:15 12/17/17 06:49 Potassium Chloride 100 ml @ 25 mls/hr UNSCH PRN IV 12/13/17 17:15 Potassium Chloride 100 ml @ 50 mls/hr Q2H PRN IV 12/13/17 17:15 Magnesium Sulfate 4 gm/Sodium Chloride 100 ml @ 50 mls/hr UNSCH PRN IV 12/13/17 17:15 (Mag-Ox) 800 mg UNSCH PRN PO 12/13/17 17:15 Magnesium Sulfate 2 gm/Sodium Chloride 100 ml @ 50 mls/hr UNSCH PRN IV 12/13/17 17:15 (K-Phos) 2,000 mg Q4H PRN PO 12/13/17 17:15 Sodium Phosphate 30 mmol/Sodium Chloride 250 ml @ 42 mls/hr UNSCH PRN IV 12/13/17 17:15 (K-Phos) 2,000 mg UNSCH PRN PO/TUBE 12/13/17 17:15 Potassium Phosphate 30 mmol/ Sodium Chloride 260 ml @ 42 mls/hr UNSCH PRN IV 12/13/17 17:15 (Vitamin B1) 100 mg DAILY PO 12/14/17 12:00 12/17/17 08:23 (Folate) 1 mg DAILY PO 12/14/17 12:00 12/17/17 08:24 (Theragran) 1 tab DAILY PO 12/14/17 12:00 12/17/17 08:23 (Habitrol 21 Mg Patch.24 Hr) 1 patch DAILY T-DERMAL 12/16/17 15:00 12/17/17 08:21 Miscellaneous Information 1 DAILY T-DERMAL 12/17/17 09:00 12/17/17 09:00 (Duoneb Neb) 1 ampule Q6HR NEB NEB 12/16/17 16:00 12/17/17 11:27 (Pepcid) 20 mg BID PO 12/16/17 21:00 12/17/17 08:23 (Lipitor) 40 mg DAILY PO 12/17/17 09:00 12/17/17 08:22 (Buspar) 15 mg BID PO 12/16/17 21:00 12/17/17 08:22 (Cymbalta Dr) 30 mg DAILY PO 12/17/17 09:00 12/17/17 08:26 (Norflex Cr) 100 mg Q12HR PO 12/16/17 21:00 12/16/17 23:31 (Desyrel) 50 mg HS PO 12/16/17 21:00 12/16/17 20:32 (Benadryl) 25 mg QID PRN PO 12/16/17 15:15 (Colace) 100 mg BID PO 12/16/17 21:00 12/17/17 08:23 (Cymbalta Dr) 60 mg HS PO 12/17/17 21:00 UNV Family Psych History Patient denies family psychiatric history Social History Patient was born and raised in [place], he lives alone in [facility], single , unemployed, supported by [facility], his highest level of education is 10th grade Patient's Strengths (min. 2) Establish outpatient psychiatric care Physical Exam No tremors, no EPS, some psychomotor retardation Vital Signs Vital Signs Date Time Temp Pulse Resp B/P (MAP) Pulse Ox O2 Delivery O2 Flow Rate FiO2 12/17/17 11:28 98 12/17/17 10:00 94 12/17/17 08:00 99.3 22 100/73 (82) 12/16/17 21:03 21 12/16/17 07:31 Nasal Cannula 3.00 I/O 12/17/17 12/17/17 12/18/17 08:00 16:00 00:00 Intake Total 300 ml Output Total 700 ml Balance -400 ml Lab Results Test 12/17/17 03:35 White Blood Count 9.9 TH/MM3 Red Blood Count 4.38 MIL/MM3 Hemoglobin 13.7 GM/DL Hematocrit 39.5 % Mean Corpuscular Volume 90.2 FL Mean Corpuscular Hemoglobin 31.2 PG Mean Corpuscular Hemoglobin Concent 34.6 % Red Cell Distribution Width 13.0 % Platelet Count 189 TH/MM3 Mean Platelet Volume 9.3 FL Neutrophils (%) (Auto) 75.2 % Lymphocytes (%) (Auto) 14.2 % Monocytes (%) (Auto) 9.2 % Eosinophils (%) (Auto) 1.0 % Basophils (%) (Auto) 0.4 % Neutrophils # (Auto) 7.4 TH/MM3 Lymphocytes # (Auto) 1.4 TH/MM3 Monocytes # (Auto) 0.9 TH/MM3 Eosinophils # (Auto) 0.1 TH/MM3 Basophils # (Auto) 0.0 TH/MM3 CBC Comment DIFF FINAL Differential Comment Blood Urea Nitrogen 13 MG/DL Creatinine 0.97 MG/DL Random Glucose 88 MG/DL Total Protein 7.5 GM/DL Albumin 3.4 GM/DL Calcium Level 9.0 MG/DL Phosphorus Level 2.7 MG/DL Magnesium Level 2.2 MG/DL Alkaline Phosphatase 94 U/L Aspartate Amino Transf (AST/SGOT) 22 U/L Alanine Aminotransferase (ALT/SGPT) 15 U/L Total Bilirubin 0.9 MG/DL Sodium Level 135 MEQ/L Potassium Level 3.4 MEQ/L Chloride Level 101 MEQ/L Carbon Dioxide Level 26.2 MEQ/L Anion Gap 8 MEQ/L Estimat Glomerular Filtration Rate 80 ML/MIN Date/Time Source Procedure Growth Status 12/15/17 19:12 Blood Peripheral Aerobic Blood Culture - Preliminary NO GROWTH IN 2 DAYS Resulted 12/15/17 19:12 Blood Peripheral Anaerobic Blood Culture - Preliminary NO GROWTH IN 2 DAYS Resulted Mental Status Examination Appearance: Appropriate Consciousness: Alert Orientation: x4 Motor Activity: Normal gait Speech: Unremarkable Language: Adequate Fund of Knowledge: Adequate Attention and Concentration: Adequate Memory: Unremarkable Mood: Sad Affect: Sad Thought Process & Associations: Intact Hallucination Type: Auditory Delusion Type: None Suicidal Ideation: Yes Suicidal Plan: Yes Suicidal Intention: No Homicidal Ideation: No Homicidal Plan: No Homicidal Intention: No Insight: Poor Judgment: Poor Assessment & Plan Problem List: (1) Encounter for psychiatric assessment ICD Codes: Z76.89 - Persons encountering health services in other specified circumstances (2) Bipolar 1 disorder ICD Codes: F31.9 - Bipolar I disorder Status: Acute Assessment & Plan: On psychiatric evaluation today the patient reports that he has been feeling very depressed, pessimistic and with frequent suicidal thoughts for the last weeks. She is unable to identified an acute or chronic stressors for his depression other than no been taking his psychotropics. The patient reports sense of hopelessness, helplessness, worthlessness, anhedonia, pessimistic thoughts, previous suicidal thoughts that led to suicidal attempt by overdose yesterday. Patient even wrote a suicide note destined to his family. Patient has an extensive history of bipolar disorder, psychiatric hospitalizations, cocaine and alcohol use disorder, noncompliant with medications, and at this moment due to his persistent suicidal ideation and the lethality of recent suicidal attempt he represents a very high risk of danger to himself and needs psychiatric hospitalization for stabilization and safety. We will restart some of this psychotropics, including Cymbalta 30 mg, BuSpar 10 mg 3 times a day, Seroquel 100 mg at bedtime. Collateral information from parents and SMA still pending. Patient can be transferred to psychiatry once medically appropriate. Assessment & Plan Estimated LOS: Luis Angel Jarquin MD Dec 17, 2017 12:24
[2017-12-17] MEDS ORDERED: DILTIAZEM HCL 25 MG/5 ML VIAL IV ONE (16:00)
[2017-12-17] MEDS: traZODone HCL 50 MG TAB PO SCH (20:37)
[2017-12-17] MEDS ORDERED: QUEtiapine FUMARATE 100 MG TAB PO SCH (21:00)
[2017-12-17] MEDS ORDERED: DULoxetine HCl DR 60 MG CAP PO SCH (21:00)
[2017-12-18] VITALS: BP 93/57; PULSE 100; PULSE 105; RESP 22; TEMP 99; O2SAT 98
[2017-12-18 04:00] VITALS: BP 102/66; PULSE 104; PULSE 4; PULSE 87; RESP 24; TEMP 98.8; O2SAT 96
[2017-12-18] MEDS: RESP: ALBUTEROL 2.5 MG/IPRATROPIUM 0.5 MG NEB (SCH) NEB ×2 (04:00→08:01)
[2017-12-18 06:00] VITALS: PULSE 87
[2017-12-18 08:02] VITALS: O2SAT 98
[2017-12-18] MEDS: REMOVE OLD PATCH T-DERMAL SCH (09:00)
[2017-12-18] MEDS ORDERED: TRAZ50TA12 PO (09:05)
[2017-12-18] MEDS ORDERED: NICO21DI25 T-DERMAL (09:05)
[2017-12-18] MEDS ORDERED: ORPH100T2 PO (09:05)
[2017-12-18] MEDS ORDERED: QUET1TAB8 PO (09:05)
--- NOTE | 2017-12-18 09:06 | HHI.DCPOC ---
Discharge Care Plan Diagnosis: (1) Schizophrenia (2) Overdose (3) Bipolar 1 disorder Goals to Promote Your Health * To prevent worsening of your condition and complications * To maintain your health at the optimal level Directions to Meet Your Goals Take your medications as prescribed Follow your dietary instruction Follow activity as directed Keep your appointments as scheduled Take your immunizations and boosters as scheduled If your symptoms worsen call your PCP, if no PCP go to Urgent Care Center or Emergency Room Smoking is Dangerous to Your Health. Avoid second hand smoke Call the 24-hour hour crisis hotline for domestic abuse at Nilesh Munoz DO Dec 18, 2017 09:06
--- NOTE | 2017-12-18 09:09 | HHI.DS ---
Discharge Summary Admission Date Dec 13, 2017 at 05:47 Discharge Date: Dec 18, 2017 Admitting Diagnosis OVERDOSE (1) Bipolar 1 disorder ICD Code: F31.9 - Bipolar I disorder Status: Acute (2) Schizophrenia ICD Code: F20.9 - Schizophrenia Status: Acute (3) Overdose ICD Code: T50.901A - Poisoning by unspecified drugs, medicaments and biological substances, accidental (unintentional), initial encounter Diagnosis: Principal Status: Acute Procedures Intubation/ extubation Brief History - From Admission History of Present Illness HPI Patient is a 57-year-old male who left a suicide note today and took a overdose of Seroquel plus other unknown psych medications. Patient was alert when the paramedics arrived at his house however he became very somnolent en route and when he arrived to the ER he was in a bizarre paradoxical kind of way his eyes are open but he was not answering questions. In view of worsening mental status and an attic breathing patient was intubated by ER physician and placed on mechanical ventilation. He had an NG tube placed and was given activated charcoal as well. She was accepted for admission by critical care medicine service. When I evaluated the patient in the ER he was sedated with propofol, orally intubated on mechanical ventilation. History was obtained by reviewing records and discussion with ER physician. Patient was also noted to be positive for cocaine on his urine drug screen. Allergies-Medications Allergies-Medications (Allergen,Severity, Reaction): Coded Allergies: No Known Allergies (Unverified Adverse Reaction, Unknown, 12/13/17) Reported Meds & Prescriptions Reported Meds & Active Scripts Active Medrol Dosepak (Methylprednisolone) 4 Mg Dspk 4 Mg PO DIRECTED Per Pharmacist direction Benadryl Allergy (Diphenhydramine HCl) 25 Mg Tablet 25 Mg PO QID PRN Orphenadrine CR (Orphenadrine Citrate) 100 Mg Tab 100 Mg PO Q12HR Ibuprofen 800 Mg Tab 800 Mg PO Q8H PRN Reported Duloxetine DR (Duloxetine HCl) 30 Mg Capdr 30 Mg PO DAILY Cymbalta DR (Duloxetine HCl) 60 Mg Capdr 60 Mg PO HS Trazodone (Trazodone HCl) 50 Mg Tab 50 Mg PO HS Viagra (Sildenafil Citrate) 100 Mg Tab 100 Mg PO DAILY PRN Seroquel (Quetiapine Fumarate) 400 Mg Tab 800 Mg PO HS Buspirone (Buspirone HCl) 5 Mg Tab 15 Mg PO BID 30 Days Atorvastatin (Atorvastatin Calcium) 40 Mg Tab 40 Mg PO DAILY Saphris (Asenapine) 10 Mg Subl 10 Mg SL DAILY Ventolin Hfa 18 GM Inh (Albuterol Sulfate) 90 Mcg/Act Aer 2 Puff INH Q4H PRN ROS Review of Systems ROS Limitations: Altered Mental Status, Other: (severely sedated from an overdose of Seroquel plus other psych meds) Except as stated in HPI: all other systems reviewed are Neg CBC/BMP: 12/17/17 0335 12/17/17 0335 Significant Findings Laboratory Tests Test 12/15/17 14:20 12/17/17 03:35 Urine Occult Blood MOD (NEG) Urine RBC 121 /hpf (0-3) Urine Mucus FEW /lpf (OCC) Red Blood Count 4.38 MIL/MM3 (4.50-5.90) Neutrophils (%) (Auto) 75.2 % (16.0-70.0) Monocytes (%) (Auto) 9.2 % (0.0-8.0) Sodium Level 135 MEQ/L (136-145) Potassium Level 3.4 MEQ/L (3.5-5.1) Estimat Glomerular Filtration Rate 80 ML/MIN (>89) Imaging Last Impressions Chest X-Ray 12/17/17 0600 Signed Impressions: Service Date/Time: Sunday, December 17, 2017 03:59 - CONCLUSION: 1. Status post extubation. 2. No acute abnormality. Javier Raygoza MD Head CT 12/13/17 0525 Signed Impressions: Service Date/Time: November 08:05 - CONCLUSION: No acute disease. Leroy Ceja Jr., MD PE at Discharge GENERAL: No distress. SKIN: Warm and dry, well perfused. HEAD: Normocephalic. EYES: No scleral icterus. No injection or drainage. NECK: Supple, trachea midline. No JVD or lymphadenopathy. CARDIOVASCULAR: Regular rate and rhythm S1, S2 no S4. Without murmurs, gallops, or rubs. RESPIRATORY: Clear to auscultation bilaterally without wheezes rales or rhonchi GASTROINTESTINAL: Abdomen soft, non-tender, nondistended. MUSCULOSKELETAL: No edema. NEURO: Cranial nerves II through XII appear to be grossly intact. Strength is equal symmetric bilaterally. Normal sensation. Pt update on day of discharge The pt complained of throat irritation and a cough. He believes it might be from the breathing tube. He said he has overdosed twice before. He said he took himself off of his meds because they made him feel tired. Discussed with nursing and case management. Hospital Course Overdose The pt was admitted to the hospital [facility] acute toxic metabolic encephalopathy due to multi-drug ingestion. Possible quetiapine overdose. Cocaine abuse- -UDS + . EtOH abuse - level 45 on admission. Law enforcement placed on involuntary hold. The pt was intubated for airway protection. He received activated charcoal to decrease absorption of quetiapine. CT of the head was unremarkable. He has been extubated and is currently on room air. Psych was consulted and recommended inpatient admission for stabilization. His medications were adjusted per psychiatry. Cough Ongoing tobacco abuse. He received incentive spirometry and oxygen as well as albuterol/ipratropium aerosols every 6 hours with albuterol aerosols every 2 hours. He received a nicotine patch. He was given Tessalon Perles. Repeat CXR showed mild opacity left lung base which could be either atelectasis or airspace consolidation. Will hold off on antibiotics as patient is afebrile and without leukocytosis. Would repeat chest x-ray in 2-3 days if cough is not improved. Urinary retention The pt received a condom catheter in the ICU. Pt Condition on Discharge: Stable Discharge Disposition: Disc to Psych Care Fac Discharge Time: > 30 minutes Discharge Instructions DIET: Follow Instructions for: As Tolerated, No Restrictions Activities you can perform: Regular-No Restrictions Follow up Referrals: PCP Follow-up - 1 Week Psychiatry Adult - 12/19/17 New Medications: Benzonatate (Tessalon Perles) 100 Mg Cap 100 MG PO TID PRN for COUGH, #20 CAP 0 Refills Buspirone (Buspirone) 10 Mg Tab 10 MG PO TID for Anxiety, #30 TAB 0 Refills Nicotine (Eq Nicotine) 21 Mg/24 Hour Dis 1 PATCH T-DERMAL DAILY for SMOKING, #30 PATCH Quetiapine (Quetiapine) 100 Mg Tab 100 MG PO HS for Psychosis, #30 TAB Trazodone (Trazodone) 50 Mg Tab 50 MG PO HS for Psychosis, #30 TAB Continued Medications: Albuterol 18 GM Inh (Ventolin Hfa 18 GM Inh) 90 Mcg/Act Aer 2 PUFF INH Q4H PRN for WHEEZING, #1 INHALER 0 Refills Atorvastatin (Atorvastatin) 40 Mg Tab 40 MG PO DAILY for Cholesterol Management, #30 TAB 0 Refills Diphenhydramine HCl (Benadryl Allergy) 25 Mg Tablet 25 MG PO QID PRN for ALLERGIC REACTION, #[address] (Duloxetine DR) 30 Mg Capdr 30 MG PO DAILY, #30 CAP 0 Refills Ibuprofen (Ibuprofen) 800 Mg Tab 800 MG PO Q8H PRN for Pain/Inflammation, #30 TAB Orphenadrine ER 12 HR (Orphenadrine CR) 100 Mg Tab 100 MG PO Q12HR for Muscle spasm, #10 TAB (This prescription has been renewed) Sildenafil (Viagra) 100 Mg Tab 100 MG PO DAILY PRN for ERECTILE DYSFUNCTION, #30 TAB 0 Refills Discontinued Medications: Asenapine (Saphris) 10 Mg Subl 10 MG SL DAILY, #60 TAB.SL 0 Refills Buspirone (Buspirone) 5 Mg Tab 15 MG PO BID for Anxiety for 30 Days, TAB [address] (Cymbalta DR) 60 Mg Capdr 60 MG PO HS, CAP 0 Refills Methylprednisolone Dosepak (Medrol Dosepak) 4 Mg Dspk 4 MG PO DIRECTED, #1 DSPK 0 Refills Per Pharmacist direction Quetiapine (Seroquel) 400 Mg Tab 800 MG PO HS, #30 TAB 0 Refills Nilesh Munoz DO Dec 18, 2017 09:09
[2017-12-18] MEDS ORDERED: BENZ100 PO (09:11)
[2017-12-18] MEDS ORDERED: BUSP10TA PO (09:15)
[2017-12-18] MEDS ORDERED: BENZONATATE 100 MG CAP PO ONE (10:00)
[2017-12-18] MEDS: DOCUSATE SODIUM 100 MG CAP PO SCH (10:10)
[2017-12-18] MEDS: FOLIC ACID 1 MG TAB PO SCH (10:10)
[2017-12-18] MEDS: SODIUM CHLORIDE 0.9% FLUSH 10 ML FLUSH IV FLUSH SCH ×2 (10:10→10:43)
[2017-12-18] MEDS: ENOXAPARIN SODIUM 40 MG/0.4 ML SYRINGE SQ SCH (10:10)
[2017-12-18] MEDS: FAMOTIDINE 20 MG TAB PO SCH (10:11)
[2017-12-18] MEDS: MULTIVITAMIN TAB PO SCH (10:11)
[2017-12-18] MEDS: ATORVASTATIN 40 MG TAB PO SCH (10:11)
[2017-12-18] MEDS: busPIRone HCL 5 MG TAB PO SCH (10:11)
[2017-12-18] MEDS: THIAMINE HCL 100 MG TAB PO SCH (10:11)
[2017-12-18] MEDS: DULoxetine HCl DR 30 MG CAP PO SCH (10:11)
--- NOTE | 2017-12-18 10:11 | RADRPT ---
EXAM DATE/TIME: 12/18/2017 09:19 [place] COMPARISON: CHEST SINGLE AP, December 13, 2017, 5:45. CHEST SINGLE AP, December 17, 2017, 3:59. INDICATIONS : Cough. Short of breath. MEDICAL HISTORY : None. SURGICAL HISTORY : None. ENCOUNTER: Subsequent ACUITY: 4 - 6 days PAIN SCORE: 0/10 LOCATION: Bilateral chest FINDINGS: Portable AP view of the chest demonstrates a normal-sized cardiac silhouette. Lungs are underinflated . There is mild airspace opacity at the left lung base. No effusion or pneumothorax is visualized. Clif maria isabel and soft tissues demonstrate no acute finding. EKG lines overlie the patient. CONCLUSION: Mild opacity at the left lung base could represent atelectasis or airspace consolidation. Ronnie Gaitan MD on December 18, 2017 at 10:07 Board Certified Radiologist. This report was verified electronically.
[2017-12-18] MEDS: NICOTINE 21 MG/24 HR PATCH T-DERMAL SCH (10:12)
[2017-12-18] MEDS: ORPHENADRINE CITRATE 100 MG SUSTAINED RELEASE TAB PO SCH (10:43)
[2017-12-19] MEDS ORDERED: VALB80CA PO (22:50)
== END 2017-12-18 11:10 | DRG 917 ==
LOC: NEPE 05:04 → NEDA 05:47 → HIMN 10:35 → HIMW 12-14 13:55
PROVIDERS: ADMIT Hospitalist; ATTEND Hospitalist
PROC: 0BH17EZ Insertion of Endotracheal Airway into Trachea, Via Natural or Artificial Opening (ICD-10-PCS; principal; 2017-12-13)
PROC: 5A1945Z Respiratory Ventilation, 24-96 Consecutive Hours (ICD-10-PCS; 2017-12-13)
PROC: 0T9B70Z Drainage of Bladder with Drainage Device, Via Natural or Artificial Opening (ICD-10-PCS; 2017-12-15)
DX: T43.592A Poisoning by other antipsychotics and neuroleptics, intentional self-harm, initial encounter (principal); J96.00 Acute respiratory failure, unspecified whether with hypoxia or hypercapnia; G92 Toxic encephalopathy; F31.30 Bipolar disorder, current episode depressed, mild or moderate severity, unspecified; T50.902A Poisoning by unspecified drugs, medicaments and biological substances, intentional self-harm, initial encounter; R00.0 Tachycardia, unspecified; E78.5 Hyperlipidemia, unspecified; R33.0 Drug induced retention of urine; F41.9 Anxiety disorder, unspecified; F14.10 Cocaine abuse, uncomplicated; F10.10 Alcohol abuse, uncomplicated; F20.9 Schizophrenia, unspecified; Y90.2 Blood alcohol level of 40-59 mg/100 ml; Z72.0 Tobacco use; Z86.19 Personal history of other infectious and parasitic diseases; Z91.14 Patient's other noncompliance with medication regimen
CPT/HCPCS: 31500; 36600; 43752; 51702; 70450; 71045; 80048; 80053; 80307; 81001; 82805; 82948; 83735; 84100; 85025; 87040; 87641; 93005; 94002; 94003; 94150; 94640; 94664; J0330; J1650; J3480; J7030

== ENCOUNTER 2017-12-18 10:56 | Inpatient (IN) | payer MEDICARE, MEDICAID, OTHER ==
[~2017-12-18] VITALS: Ht 177.8 cm; Wt 64.5 kg
[~2017-12-18 10:56] MED LIST changes: +BENZ100 PO; +BUSP10TA PO; +NICO21DI25 T-DERMAL; +QUET1TAB8 PO
[2017-12-18 12:01] VITALS: BP 112/74; PULSE 79; RESP 18; TEMP 98.2; O2SAT 99
[2017-12-18] MEDS ORDERED: LORazepam 0.5 MG TAB PO PRN (12:15)
[2017-12-18] MEDS ORDERED: LORazepam 2 MG/ML VIAL IM PRN ×2 (12:15)
[2017-12-18] MEDS ORDERED: LORazepam 1 MG TAB PO PRN (12:15)
[2017-12-18] MEDS ORDERED: MAGNESIUM HYDROXIDE SUSP 30 ML CUP PO PRN (12:15)
[2017-12-18] MEDS ORDERED: diphenhydrAMINE HCL 25 MG CAP PO PRN (12:15)
[2017-12-18] MEDS ORDERED: ALUMINUM/MAGNESIUM/SIMETH 30 ML CUP PO PRN (12:15)
[2017-12-18] MEDS: ATORVASTATIN 40 MG TAB PO SCH (12:19)
[2017-12-18] MEDS: ACETAMINOPHEN 325 MG TAB PO PRN ×2 (12:20→20:13)
[2017-12-18 18:22] VITALS: BP 103/68; PULSE 77; RESP 20; TEMP 98; O2SAT 97
[2017-12-18] MEDS: DULoxetine HCl DR 60 MG CAP PO SCH (20:12)
[2017-12-19 06:36] VITALS: BP 105/73; PULSE 89; RESP 18; TEMP 97.4; O2SAT 97
[2017-12-19] MEDS: ACETAMINOPHEN 325 MG TAB PO PRN ×2 (08:16→20:16)
[2017-12-19] MEDS: ATORVASTATIN 40 MG TAB PO SCH (08:17)
[2017-12-19] MEDS: NICOTINE 21 MG/24 HR PATCH T-DERMAL SCH (08:19)
[2017-12-19 08:47] LABS: BICARBONATE 25.8 MEQ/L (21.0-32.0); BLOOD UREA NITROGEN 14 MG/DL (7-18); CALCIUM 9.5 MG/DL (8.5-10.1); CHLORIDE 103 MEQ/L (98-107); CHOLESTEROL 183 MG/DL (120-200); CREATININE 0.72 MG/DL (0.60-1.30); GLOMERULAR FILTRATION RATE 113 ML/MIN (>89); GLUCOSE,RANDOM 92 MG/DL (74-106); SODIUM (NA) 136 MEQ/L (136-145)
[2017-12-19 08:50] LABS: CHOLESTEROL/ HDL RATIO 3.95 RATIO; HDL CHOLESTEROL 46.3 MG/DL (40.0-60.0); LDL CHOLESTEROL 117 MG/DL (0-99); TRIGLYCERIDES 99 MG/DL (42-150)
[2017-12-19 10:56] LABS: HEMOGLOBIN A1C 5.2 % (4.3-6.0)
--- NOTE | 2017-12-19 11:27 | HHI.HP ---
Provisional Diagnosis Admission Date Dec 18, 2017 at 11:22 [place] I. 1. Adjustment disorder with disturbance of emotions and conduct 2. Polysubstance abuse 3. History of bipolar disorder, presently stable [place] II. Deferred Certification of Person's Competence To Provide Express and Informed Consent I have personally examined Ubaldo Pollard , a person being served at [facility] on, Dec 19, 2017 11:27. Express and informed consent means consent voluntarily given in writing, by a competent person, after sufficient explanation and disclosure of the subject matter involved to enable the person to make a knowing and willful decision without any element of force, fraud, deceit, duress, or other form of constraint or coercion. This person is 18 years of age or older, is not now known to be incompetent to consent to treatment with a guardian advocate, and does not have a health care surrogate or proxy currently making medical treatment decisions. I have found this person to be one of the following: [x] Competent to provide express and informed consent, as defined above, for voluntary admission to this facility and is competent to provide express and informed consent for treatment. He/she has the consistent capacity to make well reasoned, willful, and knowing decisions concerning his or her medical or mental health treatment. The person fully and consistently understands the purpose of the admission for examination/placement and is fully capable of personally exercising all rights assured under [place] Incompetent to provide express and informed consent to voluntary admission, and this is incompetent to provide express and informed consent to treatment. The person must be transferred to involuntary status and a petition for a guardian advocate filed with the Circuit Court. [] Refusing to provide express and informed consent to voluntary admission but is competent to provide express and informed consent for treatment. The person must be discharged or transferred to involuntary status. Form shall be completed within 24 hours of a person's arrival at the receiving facility and filed in the clinical record of each person: 1. Admitted on a voluntary basis 2. Permitted to provide express and informed consent to his/her own treatment 3. Allowed to transfer from involuntary to voluntary status 4. Prior to permitting a person to consent to his or her own treatment after having been previously found incompetent to consent to treatment. History of Present Illness Capacity: Has Capacity Psych Chief Complaint: Overdose HPI From Dr. Barreto's H&P: The patient is a 57-year-old man, domiciled alone in [facility], single, unemployed, supported by [facility], with psychiatric history of bipolar disorder, alcohol and cocaine use disorder, 3 previous psychiatric hospitalizations, 4 suicidal attempts, last hospitalization was about 6 years ago, establish outpatient psychiatric care in [facility], he is on lithium 600 mg twice a day, Seroquel 800 mg, BuSpar 20 mg 3 times a day, Trazodone 100 mg hs, medical history of hepatitis C, brought to the hospital under [facility] act after a suicidal attempt by OD, he left a suicide note today and took a overdose of Seroquel plus other unknown psych medications. Patient was alert when the paramedics arrived at his house however he became very somnolent en route and when he arrived to the ER he was in a bizarre paradoxical kind of way his eyes are open but he was not answering questions. In view of worsening mental status and an attic breathing patient was intubated by ER physician and placed on mechanical ventilation. He had an NG tube placed and was given activated charcoal as well. He was accepted for admission by critical care medicine service. Consulted to psychiatry to address suicidal attempt. On psychiatric evaluation today patient is calm, cooperative with the interview. The patient reports that he had tried to end his life because he feels that there is no more purpose for him and is the reason for him to continue living. He cannot identify is single acute stressor for his depression and suicidal attempt. He says that he just feel he wants to . He says that for the last days she has been feeling hopeless, helpless, with poor motivation, with low energy, very pessimistic, and with frequent suicidal thoughts. Patient reports that he has not been taking his psychotropics as prescribed, I he has been mostly using alcohol every day and cocaine. At this moment, even though the patient contracted for safety in the hospital, he says that he continues to have suicidal ideation. He also reports episodic visual hallucinations of seeing people and at toilet in the ICU. He denies commanding type auditory hallucinations. Patient reports almost daily use of alcohol, as well as cocaine , denies other drugs On my examination today, 12/19: Patient seen and examined with nurse. Chart reviewed. I have reviewed the suicide note on the chart. Case discussed with nursing staff. On my exam today , patient insists that presenting overdose was impulsive "over a girl and family stuff. I had enough. I'm not good with stress." He reports that he picked up a bottle of Seroquel and took the whole thing. Patient reports that he wrote the note over 2 weeks prior to making the overdose and put it up on the shelf without the intention to use it. He presently denies any suicidal ideation and says "I feel great." He suspects that part of the reason that he may be impulsive overdose was because he has been nonadherent with his psychotropic medications. He says that his father constantly wants him to cut down his doses. He says that "what am on works" when he takes it as prescribed. Affect is generally euthymic. He denies AVH. No delusions. No hypomanic or manic symptoms. The remainder of the psychiatric ROS is negative. The patient does note worsening of dyskinesias in the setting of being off of his prescribed Ingrezza. No other physical complaints. Past psychiatric history: Patient reports a history of bipolar disorder. He follows at [facility]. He is prescribed Cymbalta 30 mg in the morning and 60 mg at bedtime, lithium 300 mg in the morning and 600 mg at bedtime, BuSpar 15 mg 3 times a day, trazodone 400 mg at bedtime, Seroquel 800 mg at bedtime and he also takes the Ingrezza, although he is unsure of the dose of this agent. I was able to confirm doses for all agents except the Ingrezza with SMA. He reports most recent previous psychiatric admission was 8 years ago following a suicide attempt. He has 4 previous suicide attempts in total, all by overdose. Family history: The patient denies a family history of serious mental illness but does note that he has had cousins who completed suicide. Chemical dependency history: Patient reports that he drinks a sixpack of beer in a week. He also uses occasional cocaine. E-FORCSE report reviewed. Patient received Rx for [place] 5-325mg #60 for [address] Tobias. Social history: The patient reports that he lives alone in his father's house. He is twice . He has 5 children. He denies any history. 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 He denies any active legal issues but does note that he was imprisoned for "drug sales from ." He has a 10th grade education. He denies any access to guns or firearms. Review of Systems Except as stated in HPI: all other systems reviewed are Neg Past Family Social History Coded Allergies: No Known Allergies (Unverified Allergy, Unknown, 12/13/17) Past Medical History See EMR Active Scripts Buspirone (Buspirone) 10 Mg Tab, 10 MG PO TID for Anxiety, #30 TAB 0 Refills Prov:Nilesh Munoz DO 12/18/17 Benzonatate (Tessalon Perles) 100 Mg Cap, 100 MG PO TID Y for COUGH, #20 CAP 0 Refills Prov:Nilesh Munoz DO 12/18/17 Quetiapine (Quetiapine) 100 Mg Tab, 100 MG PO HS for Psychosis, #30 TAB Prov:Nilesh Munoz DO 12/18/17 Trazodone (Trazodone) 50 Mg Tab, 50 MG PO HS for Psychosis, #30 TAB Prov:Nilesh Munoz DO 12/18/17 Nicotine (Eq Nicotine) 21 Mg/24 Hour Dis, 1 PATCH T-DERMAL DAILY for SMOKING, # 30 PATCH Prov:Nilesh Munoz DO 12/18/17 Orphenadrine ER 12 HR (Orphenadrine CR) 100 Mg Tab, 100 MG PO Q12HR for Muscle spasm, #10 TAB Prov:Nilesh Munoz DO 12/18/17 Diphenhydramine HCl (Benadryl Allergy) 25 Mg Tablet, 25 MG PO QID Y for ALLERGIC REACTION, #20 Prov:Marissa Tom MD 04/30/17 Ibuprofen (Ibuprofen) 800 Mg Tab, 800 MG PO Q8H Y for Pain/Inflammation, #30 TAB Prov:Shima Vazquez MD 03/22/[address] (Duloxetine DR) 30 Mg Capdr, 30 MG PO DAILY, #30 CAP 0 Refills 09/22/16 Sildenafil (Viagra) 100 Mg Tab, 100 MG PO DAILY Y for ERECTILE DYSFUNCTION, #30 TAB 0 Refills 09/22/16 Atorvastatin (Atorvastatin) 40 Mg Tab, 40 MG PO DAILY for Cholesterol Management , #30 TAB 0 Refills 09/22/16 Albuterol 18 GM Inh (Ventolin Hfa 18 GM Inh) 90 Mcg/Act Aer, 2 PUFF INH Q4H Y for WHEEZING, #1 INHALER 0 Refills 09/22/16 Discontinued Reported Medications Duloxetine (Zelda COTTO) 60 Mg Capdr, 60 MG PO HS, CAP 0 Refills 09/22/16 Quetiapine (Seroquel) 400 Mg Tab, 800 MG PO HS, #30 TAB 0 Refills 09/22/16 Buspirone (Buspirone) 5 Mg Tab, 15 MG PO BID for Anxiety for 30 Days, TAB 0 Refills 09/22/16 Asenapine (Saphris) 10 Mg Subl, 10 MG SL DAILY, #60 TAB.SL 0 Refills 09/22/16 Trazodone (Trazodone) 50 Mg Tab, 50 MG PO HS for Control Depression, #30 TAB 0 Refills 09/22/16 Discontinued Scripts Methylprednisolone Dosepak (Medrol Dosepak) 4 Mg Dspk, 4 MG PO DIRECTED, #1 DSPK 0 Refills Per Pharmacist direction Prov:Marissa Tom MD 04/30/17 Current Medications Medications (Trade) Dose Ordered Sig/Brigido Route Start Time Stop Time Status Last Admin (Proair Hfa Inh) 2 puff Q4H PRN INH 12/18/17 12:15 (Lipitor) 40 mg DAILY PO 12/18/17 12:15 12/19/17 08:17 (Zelda Cotto) 60 mg HS PO 12/18/17 21:00 12/18/17 20:12 (Benadryl) 25 mg QID PRN PO 12/18/17 12:15 (Ativan) 1 mg Q6H PRN PO 12/18/17 12:15 12/19/17 08:17 (Ativan Inj) 1 mg Q6H PRN IM 12/18/17 12:15 (Tylenol) 650 mg Q4H PRN PO 12/18/17 12:15 12/19/17 08:16 (Milk Of Magnesia Liq) 30 ml DAILY PRN PO 12/18/17 12:15 (Mag-Al Plus Susp Liq) 30 ml Q6H PRN PO 12/18/17 12:15 (Habitrol 21 Mg Patch.24 Hr) 1 patch DAILY T-DERMAL 12/19/17 09:00 12/19/17 08:19 Miscellaneous Information 1 HS T-DERMAL 12/19/17 21:00 (Tessalon) 200 mg TID PRN PO 12/19/17 09:00 Patient's Strengths (min. 2) In a monitored setting. Verbally fluent. Physical Exam Physical exam completed by hospitalist on medical floor. On my examination today, the patient appears to be in no acute physical distress. He does have some oral dyskinesias. No other motor abnormalities noted. Labs and vitals reviewed: Vital Signs Vital Signs Date Time Temp Pulse Resp B/P (MAP) Pulse Ox O2 Delivery O2 Flow Rate FiO2 12/19/17 06:36 97.4 89 18 105/73 (84) 97 Lab Results Item Value Date Time White Blood Count 9.9 TH/MM3 12/17/17 0335 Hemoglobin 13.7 GM/DL 12/17/17 0335 Platelet Count 189 TH/MM3 12/17/17 0335 Sodium Level 136 MEQ/L 12/19/17 0654 Potassium Level 4.5 MEQ/L 12/19/17 0654 Chloride Level 103 MEQ/L 12/19/17 0654 Carbon Dioxide Level 25.8 MEQ/L 12/19/17 0654 Blood Urea Nitrogen 14 MG/DL 12/19/17 0654 Creatinine 0.72 MG/DL 12/19/17 0654 Estimat Glomerular Filtration Rate 113 ML/MIN 12/19/17 0654 Aspartate Amino Transf (AST/SGOT) 22 U/L 12/17/17 0335 Alanine Aminotransferase (ALT/SGPT) 15 U/L 12/17/17 0335 Alkaline Phosphatase 94 U/L 12/17/17 0335 Ethyl Alcohol Level 45 MG/DL H 12/13/17 0530 Urine Cocaine Screen POS H 12/13/17 0530 EKG on medical floor read as sinus rhythm with QTc 447ms, not prolonged. Mental Status Examination Appearance: Appropriate Consciousness: Alert Orientation: x4 Motor Activity: Normal gait Speech: Unremarkable Language: Adequate Fund of Knowledge: Adequate Attention and Concentration: Adequate Memory: Unremarkable Mood: Appropriate Affect: Appropriate Thought Process & Associations: Intact, Logical, Linear Thought Content: Appropriate Hallucination Type: None Delusion Type: None Suicidal Ideation: No (unclear whether patient is reliable contract for safety) Suicidal Plan: No Suicidal Intention: No Homicidal Ideation: No Homicidal Plan: No Homicidal Intention: No Insight: Fair Judgment: Impulsive Assessment & Plan Problem List: (1) Adjustment disorder with mixed disturbance of emotions and conduct ICD Codes: F43.25 - Adjustment disorder with mixed disturbance of emotions and conduct (2) Polysubstance abuse ICD Codes: F19.10 - Other psychoactive substance abuse, uncomplicated (3) Bipolar 1 disorder ICD Codes: F31.9 - Bipolar I disorder Status: Acute Assessment & Plan 57-year-old male with psychiatric history as detailed above who presents in transfer from the medical floor following an overdose. On my examination today , the patient maintains that presenting overdose was impulsive in response to psychosocial stressors. He now denies suicidal ideation although it is unclear whether patient is reliable to contract for safety. Mood is presently stable. No psychotic symptoms. Patient has been nonadherent with psychotropic medications by his report. He would benefit from inpatient psychiatric hospitalization for observation and to resume psychotropic medications. Admit inpatient. Voluntary status. Resume outpatient psychotropic regimen including lithium, Seroquel, trazodone, Cymbalta, BuSpar. Nurse to contact pharmacy for doses of Ingrezza (which I have told patient will need to be brought in from home) as well as Flexeril that patient reports he takes outpatient. Atarax as needed for anxiety. R/B/A for medications discussed with patient. Check TSH. Renal function intact. Plan to check a lithium level after the appropriate interval. Consult hospitalist to continue to follow from the medical floor. Vitals every shift. Counselor to see. Disposition planning. Estimated length of stay: 5-7 days. Discharge Planning Pending outcome of observation. Request HC Surrog/Guard Advoc?: No Hunter Stark MD Dec 19, 2017 11:27
[2017-12-19] MEDS ORDERED: hydrOXYzine HCL 50 MG TAB PO PRN (11:45)
[2017-12-19] MEDS: busPIRone HCL 10 MG TAB PO SCH ×2 (13:00→18:00)
--- NOTE | 2017-12-19 13:47 | RADRPT ---
EXAM DATE/TIME: 12/19/2017 13:35 [place] COMPARISON: No previous studies available for comparison. INDICATIONS : Evaluate for pneumonia. MEDICAL HISTORY : None. SURGICAL HISTORY : None. ENCOUNTER: Subsequent ACUITY: 4 - 6 days PAIN SCORE: 0/10 LOCATION: Bilateral chest FINDINGS: PA and lateral views of the chest demonstrate the lungs to be symmetrically aerated without evidence of mass, infiltrate or effusion. The cardiomediastinal contours are unremarkable. Osseous structure s are intact. CONCLUSION: No acute disease. Dale Flores MD FACR on December 19, 2017 at 13:46 Board Certified Radiologist. This report was verified electronically.
[2017-12-19] MEDS ORDERED: guaiFENesin SOLUTION 200 MG/10 ML CUP PO ONE (17:30)
[2017-12-19] MEDS ORDERED: PHENOL 1.4% SOLN 180 ML BTL OROPHARYNG ONE (17:30)
--- NOTE | 2017-12-19 17:32 | PD.CONS ---
[facility] Requested By Dr. Barreto Reason for Consult Medical management Primary Care Physician Unknown Diagnoses: History of Present Illness The patient is a 57-year-old male who was transferred to the psychiatry unit after being hospitalized following an overdose. The patient was hospitalized in the intensive care unit and was discharged on 12/18/17. Upon admission the patient required intubation and was successfully weaned from the ventilator. He overdosed on Seroquel. He has had suicide attempts in the past. He does complain of a persistent cough. He said that he is trying to quit smoking cigarettes. He said that he is hopeful that he gets out of the hospital soon. He denies any fevers. He says that he has been having bowel movements. No other complaints besides the cough. The pt uses cocaine every once in a while. He also can drink heavily at times. Review of Systems Except as stated in HPI: all other systems reviewed are Neg Past Family Social History Allergies: Coded Allergies: No Known Allergies (Unverified Allergy, Unknown, 12/13/17) Past Medical History Bipolar disorder Hypotension Past Surgical History Hernia repair Appendectomy Active Ordered Medications Current Medications Medications (Trade) Dose Ordered Sig/Brigido Route Start Time Stop Time Status Last Admin (Proair Hfa Inh) 2 puff Q4H PRN INH 12/18/17 12:15 (Lipitor) 40 mg DAILY PO 12/18/17 12:15 12/19/17 08:17 (Cymbalta ) 60 mg HS PO 12/18/17 21:00 12/18/17 20:12 (Tylenol) 650 mg Q4H PRN PO 12/18/17 12:15 12/19/17 08:16 (Milk Of Magnesia Liq) 30 ml DAILY PRN PO 12/18/17 12:15 (Mag-Al Plus Susp Liq) 30 ml Q6H PRN PO 12/18/17 12:15 (Habitrol 21 Mg Patch.24 Hr) 1 patch DAILY T-DERMAL 12/19/17 09:00 12/19/17 08:19 Miscellaneous Information 1 HS T-DERMAL 12/19/17 21:00 (Tessalon) 200 mg TID PRN PO 12/19/17 09:00 (Cymbalta ) 30 mg DAILY PO 12/20/17 09:00 (Lithotabs) 300 mg DAILY PO 12/20/17 09:00 (Susank Carbonate) 600 mg HS PO 12/19/17 21:00 (SEROquel) 800 mg HS PO 12/19/17 21:00 (Desyrel) 400 mg HS PO 12/19/17 21:00 (Buspar) 15 mg TID PO 12/19/17 13:00 12/19/17 13:00 (Jay 5-325 Mg) 1 tab BID PRN PO 12/19/17 11:30 (Atarax) 50 mg Q6H PRN PO 12/19/17 11:45 Family History Bipolar disorder Social History The pt smokes a pack per day. He drinks a six pack of alcohol per week. He uses cocaine occasionally. Physical Exam Vital Signs Vital Signs Date Time Temp Pulse Resp B/P (MAP) Pulse Ox O2 Delivery O2 Flow Rate FiO2 12/19/17 06:36 97.4 89 18 105/73 (84) 97 12/18/17 18:22 98.0 77 20 103/68 (80) 97 Physical Exam GENERAL: No distress. SKIN: Warm and dry, well perfused. HEAD: Normocephalic. EYES: No scleral icterus. No injection or drainage. NECK: Supple, trachea midline. No JVD or lymphadenopathy. CARDIOVASCULAR: Regular rate and rhythm S1, S2 no S4. Without murmurs, gallops, or rubs. RESPIRATORY: Clear to auscultation bilaterally without wheezes rales or rhonchi GASTROINTESTINAL: Abdomen soft, non-tender, nondistended. MUSCULOSKELETAL: No edema. NEURO: Cranial nerves II through XII appear to be grossly intact. Strength is equal symmetric bilaterally. Normal sensation. Normal gait. PSYCH: Mood and affect appropriate. Laboratory Laboratory Tests Test 12/19/17 06:54 Blood Urea Nitrogen 14 Creatinine 0.72 Random Glucose 92 Calcium Level 9.5 Sodium Level 136 Potassium Level 4.5 Chloride Level 103 Carbon Dioxide Level 25.8 Anion Gap 7 Estimat Glomerular Filtration Rate 113 Hemoglobin A1c 5.2 Triglycerides Level 99 Cholesterol Level 183 LDL Cholesterol 117 HDL Cholesterol 46.3 Cholesterol/HDL Ratio 3.95 Thyroid Stimulating Hormone 3rd Gen 2.230 Result Diagram: 12/19/17 0654 Imaging Last Impressions Chest X-Ray 12/19/17 0000 Signed Impressions: Service Date/Time: Tuesday, December 19, 2017 13:35 - CONCLUSION: No acute disease. Dale Flores MD FACR Assessment and Plan Assessment and Plan Overdose The pt was admitted to the hospital with acute toxic metabolic encephalopathy due to multi-drug ingestion. Possible quetiapine overdose. Cocaine abuse- -UDS + . EtOH abuse - level 45 on admission. Law enforcement placed on involuntary hold. The pt was intubated for airway protection. He received activated charcoal to decrease absorption of quetiapine. CT of the head was unremarkable. He has been extubated and is currently on room air. Psych was consulted and recommended inpatient admission for stabilization. His medications were adjusted per psychiatry and he has been transferred. - care per psychiatry. Cough Ongoing tobacco abuse. Repeat CXR PA/ lateral with no acute disease. Likely bronchitis. - antitussives as needed. - throat spray as needed. - albuterol as needed. PPx: Ambulation Medicine will sign off on this stable patient. Please reconsult if needed. Nilesh Munoz DO Dec 19, 2017 17:31
[2017-12-19 18:27] VITALS: BP 111/72; PULSE 81; RESP 18; TEMP 98.3; O2SAT 99
[2017-12-19] MEDS: traZODone HCL 100 MG TAB PO SCH (20:15)
[2017-12-19] MEDS: QUEtiapine FUMARATE 200 MG TAB PO SCH (20:15)
[2017-12-19] MEDS: DULoxetine HCl DR 60 MG CAP PO SCH (20:16)
[2017-12-19] MEDS: LITHIUM CARBONATE 300 MG CAP PO SCH (20:16)
[2017-12-19] MEDS: REMOVE OLD NICODERM (NICOTINE) PATCH T-DERMAL SCH (20:16)
[2017-12-19] MEDS: ACETAMINOPHEN/HYDROcodone 325 MG/5 MG TAB PO PRN (20:17)
[2017-12-19] MEDS ORDERED: VALB80CA PO (22:50)
[2017-12-20 05:45] VITALS: BP 103/63; PULSE 80; RESP 18; TEMP 98.1; O2SAT 96
[2017-12-20] MEDS: LITHIUM CARBONATE 300 MG TAB PO SCH (08:09)
[2017-12-20] MEDS: DULoxetine HCl DR 30 MG CAP PO SCH (08:09)
[2017-12-20] MEDS: busPIRone HCL 10 MG TAB PO SCH ×3 (08:09→17:00)
[2017-12-20] MEDS: NICOTINE 21 MG/24 HR PATCH T-DERMAL SCH (08:10)
[2017-12-20] MEDS: BENZONATATE 100 MG CAP PO PRN ×2 (08:56→19:16)
[2017-12-20] MEDS: PHENOL 1.4% SOLN 180 ML BTL OROPHARYNG PRN (08:56)
[2017-12-20] MEDS: ATORVASTATIN 40 MG TAB PO SCH (08:56)
[2017-12-20] MEDS: INGREZZA 40 MG PO SCH (09:00)
[2017-12-20] MEDS: ALBUTEROL SULFATE 90 MCG/ACT HFA 8 GM INHALER INH PRN ×3 (09:03→15:47)
[2017-12-20] MEDS: ACETAMINOPHEN 325 MG TAB PO PRN (11:22)
--- NOTE | 2017-12-20 12:10 | HHI.PYPN ---
Subjective Chief Complaint: Overdose Remarks Patient seen and examined with nurse. Chart reviewed. Case discussed with nursing staff who reports patient is cooperative and pleasant on the unit. On my examination today, the patient reports mood is good. He denies any SI or HI. He denies any AVH. Visited with mother last night, and this was reportedly a good visit. Denies side effects from medications besides some mild tiredness from being back on full doses of medications. Complains of some allergic rhinitis and is requesting Flonase. Review of Systems Except as stated in HPI: all other systems reviewed are Neg Mental Status Examination Appearance: Appropriate Consciousness: Alert Orientation: x4 Motor Activity: Normal gait, Other (no new motor abnormalities noted) Speech: Unremarkable Language: Adequate Fund of Knowledge: Adequate Attention and Concentration: Adequate Memory: Unremarkable Mood: Appropriate Affect: Appropriate Thought Process & Associations: Intact, Logical, Linear Thought Content: Appropriate Hallucination Type: None Delusion Type: None Suicidal Ideation: No Suicidal Plan: No Suicidal Intention: No Homicidal Ideation: No Homicidal Plan: No Homicidal Intention: No Insight: Fair Judgment: Impulsive Results Labs Labs reviewed. No new labs. Vitals/IOs Vital Signs Date Time Temp Pulse Resp B/P (MAP) Pulse Ox O2 Delivery O2 Flow Rate FiO2 12/20/17 05:45 98.1 80 18 103/63 (76) 96 Assessment & Plan Problem List: (1) Adjustment disorder with mixed disturbance of emotions and conduct ICD Codes: F43.25 - Adjustment disorder with mixed disturbance of emotions and conduct (2) Polysubstance abuse ICD Codes: F19.10 - Other psychoactive substance abuse, uncomplicated (3) Bipolar 1 disorder ICD Codes: F31.9 - Bipolar I disorder Status: Acute Assessment & Plan Add Flonase. Continue current psychotropics as ordered. Check lithium level and BMP Sunday morning. Hospitalist input noted and appreciated. Continue to monitor on the inpatient unit. Counselor to obtain collateral information. Continue other care as ordered. Justification for Cont. Inpt. Monitoring for impairment in safety, none noted. Discharge Planning Anticipate discharge shortly after the weekend, possibly Sunday. Request HC Surrog/Guard Advoc?: No Hunter Stark MD Dec 20, 2017 12:10
[2017-12-20] MEDS: FLUTICASONE PROPIONATE 50 MCG/ACT 16 GM NASAL SPRAY EACH NARE SCH (15:48)
[2017-12-20 17:48] VITALS: BP 106/67; PULSE 85; RESP 18; TEMP 97.1; O2SAT 98
[2017-12-20] MEDS: ACETAMINOPHEN/HYDROcodone 325 MG/5 MG TAB PO PRN (19:16)
[2017-12-20] MEDS: REMOVE OLD NICODERM (NICOTINE) PATCH T-DERMAL SCH (20:37)
[2017-12-20] MEDS: DULoxetine HCl DR 60 MG CAP PO SCH (20:38)
[2017-12-20] MEDS: LITHIUM CARBONATE 300 MG CAP PO SCH (20:38)
[2017-12-20] MEDS: traZODone HCL 100 MG TAB PO SCH (20:38)
[2017-12-20] MEDS: QUEtiapine FUMARATE 200 MG TAB PO SCH (20:39)
[2017-12-21 05:27] VITALS: BP 100/68; PULSE 95; RESP 17; TEMP 97.4; O2SAT 97
[2017-12-21] MEDS: ATORVASTATIN 40 MG TAB PO SCH (08:31)
[2017-12-21] MEDS: LITHIUM CARBONATE 300 MG TAB PO SCH (08:31)
[2017-12-21] MEDS: busPIRone HCL 10 MG TAB PO SCH ×3 (08:31→18:05)
[2017-12-21] MEDS: DULoxetine HCl DR 30 MG CAP PO SCH (08:32)
[2017-12-21] MEDS: INGREZZA 40 MG PO SCH (08:32)
[2017-12-21] MEDS: REMOVE OLD NICODERM (NICOTINE) PATCH T-DERMAL SCH (08:32)
[2017-12-21] MEDS: NICOTINE 21 MG/24 HR PATCH T-DERMAL SCH (08:32)
[2017-12-21] MEDS: FLUTICASONE PROPIONATE 50 MCG/ACT 16 GM NASAL SPRAY EACH NARE SCH (09:00)
[2017-12-21] MEDS: PHENOL 1.4% SOLN 180 ML BTL OROPHARYNG PRN (12:03)
[2017-12-21] MEDS: ALBUTEROL SULFATE 90 MCG/ACT HFA 8 GM INHALER INH PRN (12:03)
--- NOTE | 2017-12-21 15:06 | HHI.PYPN ---
Subjective Chief Complaint: Overdose Remarks Reviewed electronic medical record and discussed patient's case with staff. Follow-up evaluation in patient's room with nurse present. Patient found lying in bed awakes to verbal stimuli. He reports that he is tired this morning due to an incident on the unit last night. Is euthymic and states he has a good appetite. He denies thoughts of self-harm, homicidal ideation, auditory visual hallucinations. Reports that he has been participating in group activities. No physical complaints today. Mental Status Examination Appearance: Appropriate Consciousness: Alert Orientation: x4 Motor Activity: Other (Lying in bed) Speech: Unremarkable Language: Adequate Fund of Knowledge: Adequate Attention and Concentration: Adequate Memory: Unremarkable Mood: Appropriate Affect: Appropriate Thought Process & Associations: Intact, Logical, Linear Thought Content: Appropriate Hallucination Type: None Delusion Type: None Suicidal Ideation: No Suicidal Plan: No Suicidal Intention: No Homicidal Ideation: No Homicidal Plan: No Homicidal Intention: No Insight: Fair Judgment: Impulsive Results Vitals/IOs Vital Signs Date Time Temp Pulse Resp B/P (MAP) Pulse Ox O2 Delivery O2 Flow Rate FiO2 12/21/17 05:27 97.4 95 17 100/68 (79) 97 Assessment & Plan Problem List: (1) Adjustment disorder with mixed disturbance of emotions and conduct ICD Codes: F43.25 - Adjustment disorder with mixed disturbance of emotions and conduct (2) Polysubstance abuse ICD Codes: F19.10 - Other psychoactive substance abuse, uncomplicated (3) Bipolar 1 disorder ICD Codes: F31.9 - Bipolar I disorder Status: Acute Assessment & Plan Estimated LOS: We will continue with treatment plan until psychiatrically stabilized. Justification for Cont. Inpt. Removing this patient to a lower level of care would likely result in decompensation. Request HC Surrog/Guard Advoc?: No Debra Costello Dec 21, 2017 15:06
[2017-12-21 17:43] VITALS: BP 129/66; PULSE 87; RESP 17; TEMP 97.2; O2SAT 98
[2017-12-21] MEDS: QUEtiapine FUMARATE 200 MG TAB PO SCH (20:58)
[2017-12-21] MEDS: DULoxetine HCl DR 60 MG CAP PO SCH (20:58)
[2017-12-21] MEDS: LITHIUM CARBONATE 300 MG CAP PO SCH (20:58)
[2017-12-21] MEDS: traZODone HCL 100 MG TAB PO SCH (20:58)
[2017-12-22 05:39] VITALS: BP 94/58; PULSE 99; RESP 16; TEMP 97.5; O2SAT 97
[2017-12-22] MEDS: FLUTICASONE PROPIONATE 50 MCG/ACT 16 GM NASAL SPRAY EACH NARE SCH (08:57)
[2017-12-22] MEDS: INGREZZA 40 MG PO SCH (08:58)
[2017-12-22] MEDS: LITHIUM CARBONATE 300 MG TAB PO SCH (09:00)
[2017-12-22] MEDS: busPIRone HCL 10 MG TAB PO SCH ×3 (09:00→17:27)
[2017-12-22] MEDS: DULoxetine HCl DR 30 MG CAP PO SCH (09:00)
[2017-12-22] MEDS: ATORVASTATIN 40 MG TAB PO SCH (09:00)
[2017-12-22] MEDS: NICOTINE 21 MG/24 HR PATCH T-DERMAL SCH (09:00)
[2017-12-22] MEDS: ACETAMINOPHEN/HYDROcodone 325 MG/5 MG TAB PO PRN ×2 (09:12→19:45)
[2017-12-22] MEDS: PHENOL 1.4% SOLN 180 ML BTL OROPHARYNG PRN (10:24)
[2017-12-22] MEDS: ALBUTEROL SULFATE 90 MCG/ACT HFA 8 GM INHALER INH PRN (10:24)
[2017-12-22] MEDS: BENZONATATE 100 MG CAP PO PRN (10:24)
[2017-12-22] MEDS: ACETAMINOPHEN 325 MG TAB PO PRN (13:20)
--- NOTE | 2017-12-22 14:10 | HHI.PYPN ---
Subjective Chief Complaint: Overdose Remarks Patient was seen and case discussed with nursing. Patient is bright and cheerful during the interview. Describes his mood today is "pretty good." Notes benefit from Ingrezza there is no EPS on exam. Denies auditory visual hallucinations. Denies suicidal or homicidal ideation intent or plan. Sleeping "pretty good." Mental Status Examination Appearance: Appropriate Consciousness: Alert Orientation: x4 Motor Activity: Other (Lying in bed) Speech: Unremarkable Language: Adequate Fund of Knowledge: Adequate Attention and Concentration: Adequate Memory: Unremarkable Mood: Appropriate Affect: Appropriate Thought Process & Associations: Intact, Logical, Linear Thought Content: Appropriate Hallucination Type: None Delusion Type: None Suicidal Ideation: No Suicidal Plan: No Suicidal Intention: No Homicidal Ideation: No Homicidal Plan: No Homicidal Intention: No Insight: Fair Judgment: Impulsive Results Vitals/IOs Vital Signs Date Time Temp Pulse Resp B/P (MAP) Pulse Ox O2 Delivery O2 Flow Rate FiO2 12/22/17 10:24 17 12/22/17 05:39 97.5 99 94/58 (70) 97 Assessment & Plan Problem List: (1) Adjustment disorder with mixed disturbance of emotions and conduct ICD Codes: F43.25 - Adjustment disorder with mixed disturbance of emotions and conduct (2) Polysubstance abuse ICD Codes: F19.10 - Other psychoactive substance abuse, uncomplicated (3) Bipolar 1 disorder ICD Codes: F31.9 - Bipolar I disorder Status: Acute Assessment & Plan Continue current treatment plan Justification for Cont. Inpt. Patient would decompensate in a less restrictive setting Request HC Surrog/Guard Advoc?: No Tye Chowdary DO Dec 22, 2017 14:10
[2017-12-22 18:25] VITALS: BP 117/80; PULSE 83; RESP 16; TEMP 98.2; O2SAT 98
[2017-12-22] MEDS: REMOVE OLD NICODERM (NICOTINE) PATCH T-DERMAL SCH (21:00)
[2017-12-22] MEDS: DULoxetine HCl DR 60 MG CAP PO SCH (21:04)
[2017-12-22] MEDS: traZODone HCL 100 MG TAB PO SCH (21:04)
[2017-12-22] MEDS: LITHIUM CARBONATE 300 MG CAP PO SCH (21:05)
[2017-12-22] MEDS: QUEtiapine FUMARATE 200 MG TAB PO SCH (21:05)
[2017-12-23 04:55] VITALS: BP 108/70; PULSE 69; RESP 16; TEMP 97.8; O2SAT 98
[2017-12-23] MEDS: INGREZZA 40 MG PO SCH (08:57)
[2017-12-23] MEDS: busPIRone HCL 10 MG TAB PO SCH ×3 (08:58→17:00)
[2017-12-23] MEDS: ATORVASTATIN 40 MG TAB PO SCH (08:59)
[2017-12-23] MEDS: FLUTICASONE PROPIONATE 50 MCG/ACT 16 GM NASAL SPRAY EACH NARE SCH (08:59)
[2017-12-23] MEDS: NICOTINE 21 MG/24 HR PATCH T-DERMAL SCH (08:59)
[2017-12-23] MEDS: LITHIUM CARBONATE 300 MG TAB PO SCH (08:59)
[2017-12-23] MEDS: DULoxetine HCl DR 30 MG CAP PO SCH (08:59)
[2017-12-23] MEDS: PHENOL 1.4% SOLN 180 ML BTL OROPHARYNG PRN (09:00)
[2017-12-23] MEDS: ACETAMINOPHEN/HYDROcodone 325 MG/5 MG TAB PO PRN ×2 (09:13→17:00)
[2017-12-23] MEDS: ACETAMINOPHEN 325 MG TAB PO PRN (10:33)
--- NOTE | 2017-12-23 10:42 | HHI.PYPN ---
Subjective Chief Complaint: Overdose Remarks Patient was seen and case discussed with nursing. Patient is pleasant and cooperative with exam. Compliant with medications. Eating and sleeping well. He is intermittently complaining of pain. Notices an improvement in mood and denies suicidal or homicidal ideation intent or plan. Mental Status Examination Appearance: Appropriate Consciousness: Alert Orientation: x4 Motor Activity: Other (Lying in bed) Speech: Unremarkable Language: Adequate Fund of Knowledge: Adequate Attention and Concentration: Adequate Memory: Unremarkable Mood: Appropriate Affect: Appropriate Thought Process & Associations: Intact, Logical, Linear Thought Content: Appropriate Hallucination Type: None Delusion Type: None Suicidal Ideation: No Suicidal Plan: No Suicidal Intention: No Homicidal Ideation: No Homicidal Plan: No Homicidal Intention: No Insight: Fair Judgment: Impulsive Results Vitals/IOs Vital Signs Date Time Temp Pulse Resp B/P (MAP) Pulse Ox O2 Delivery O2 Flow Rate FiO2 12/23/17 10:32 18 12/23/17 04:55 97.8 69 108/70 (83) 98 Assessment & Plan Problem List: (1) Adjustment disorder with mixed disturbance of emotions and conduct ICD Codes: F43.25 - Adjustment disorder with mixed disturbance of emotions and conduct (2) Polysubstance abuse ICD Codes: F19.10 - Other psychoactive substance abuse, uncomplicated (3) Bipolar 1 disorder ICD Codes: F31.9 - Bipolar I disorder Status: Acute Assessment & Plan Continue current treatment plan Justification for Cont. Inpt. Patient will decompensate in a less restrictive setting Request HC Surrog/Guard Advoc?: No Tye Chowdary DO Dec 23, 2017 10:41
[2017-12-23 16:55] VITALS: BP 100/65; PULSE 78; RESP 18; TEMP 98.3; O2SAT 97
[2017-12-23] MEDS: traZODone HCL 100 MG TAB PO SCH (20:58)
[2017-12-23] MEDS: DULoxetine HCl DR 60 MG CAP PO SCH (20:58)
[2017-12-23] MEDS: QUEtiapine FUMARATE 200 MG TAB PO SCH (20:59)
[2017-12-23] MEDS: LITHIUM CARBONATE 300 MG CAP PO SCH (20:59)
[2017-12-23] MEDS: REMOVE OLD NICODERM (NICOTINE) PATCH T-DERMAL SCH (20:59)
[2017-12-24 05:31] VITALS: BP 100/62; PULSE 70; RESP 16; TEMP 98.2; O2SAT 97
[2017-12-24 06:40] LABS: BICARBONATE 27.1 MEQ/L (21.0-32.0); CALCIUM 8.8 MG/DL (8.5-10.1); CREATININE 0.88 MG/DL (0.60-1.30)
[2017-12-24] MEDS: ACETAMINOPHEN 325 MG TAB PO PRN ×2 (08:20→13:22)
[2017-12-24] MEDS: ATORVASTATIN 40 MG TAB PO SCH (08:44)
[2017-12-24] MEDS: busPIRone HCL 10 MG TAB PO SCH ×2 (08:44→12:47)
[2017-12-24] MEDS: LITHIUM CARBONATE 300 MG TAB PO SCH (08:44)
[2017-12-24] MEDS: FLUTICASONE PROPIONATE 50 MCG/ACT 16 GM NASAL SPRAY EACH NARE SCH (08:44)
[2017-12-24] MEDS: DULoxetine HCl DR 30 MG CAP PO SCH (08:45)
[2017-12-24] MEDS: INGREZZA 40 MG PO SCH (08:45)
[2017-12-24] MEDS: NICOTINE 21 MG/24 HR PATCH T-DERMAL SCH (08:45)
[2017-12-24] MEDS: ACETAMINOPHEN/HYDROcodone 325 MG/5 MG TAB PO PRN (09:10)
[2017-12-24] MEDS ORDERED: BUSP10TA PO (14:59)
[2017-12-24] MEDS ORDERED: LITH300T3 PO (14:59)
[2017-12-24] MEDS ORDERED: DULO1CAP3 PO (14:59)
[2017-12-24] MEDS ORDERED: QUET1TAB9 PO (14:59)
[2017-12-24] MEDS ORDERED: LITH300C2 PO (14:59)
[2017-12-24] MEDS ORDERED: TRAZ50TA12 PO (14:59)
--- NOTE | 2017-12-24 14:59 | HHI.DS ---
Psychiatry Discharge Summary Inpatient Psychiatric care?: Yes Advance Directive: No Reason Not Provided: Provided to patient Mental Health AdvanceDirective: No Health Care Proxy: No Admission Admission Date Dec 18, 2017 at 11:22 Admission Diagnosis: (1) Adjustment disorder with mixed disturbance of emotions and conduct ICD Code: F43.25 - Adjustment disorder with mixed disturbance of emotions and conduct (2) Polysubstance abuse ICD Code: F19.10 - Other psychoactive substance abuse, uncomplicated (3) Bipolar 1 disorder ICD Code: F31.9 - Bipolar I disorder Brief History The patient is a 57-year-old man, domiciled alone in [facility], single, unemployed, supported by [facility], with psychiatric history of bipolar disorder, alcohol and cocaine use disorder, 3 previous psychiatric hospitalizations, 4 suicidal attempts, last hospitalization was about 6 years ago, establish outpatient psychiatric care in [facility], he is on lithium 600 mg twice a day, Seroquel 800 mg, BuSpar 20 mg 3 times a day, Trazodone 100 mg hs, medical history of hepatitis C, brought to the hospital under [facility] act after a suicidal attempt by OD, he left a suicide note today and took a overdose of Seroquel plus other unknown psych medications. Patient was alert when the paramedics arrived at his house however he became very somnolent en route and when he arrived to the ER he was in a bizarre paradoxical kind of way his eyes are open but he was not answering questions. In view of worsening mental status and an attic breathing patient was intubated by ER physician and placed on mechanical ventilation. He had an NG tube placed and was given activated charcoal as well. He was accepted for admission by critical care medicine service. Consulted to psychiatry to address suicidal attempt. On psychiatric evaluation today patient is calm, cooperative with the interview. The patient reports that he had tried to end his life because he feels that there is no more purpose for him and is the reason for him to continue living. He cannot identify is single acute stressor for his depression and suicidal attempt. He says that he just feel he wants to . He says that for the last days she has been feeling hopeless, helpless, with poor motivation, with low energy, very pessimistic, and with frequent suicidal thoughts. Patient reports that he has not been taking his psychotropics as prescribed, I he has been mostly using alcohol every day and cocaine. At this moment, even though the patient contracted for safety in the hospital, he says that he continues to have suicidal ideation. He also reports episodic visual hallucinations of seeing people and at toilet in the ICU. He denies commanding type auditory hallucinations. Patient reports almost daily use of alcohol, as well as cocaine , denies other drugs. Tobacco Use In Past 30 Days: 5 or More Cigarettes/Day Alcohol Use: 2-3 Times Per Week Hospital Course Patient was admitted to a locked, inpatient psychiatric unit. A general medical consultation was obtained. Appropriate precautions were in place throughout patient's hospital stay. Patient was seen and examined on the unit by psychiatry and also visited by counselor. Full doses of home psychotropic medications were resumed. Patient tolerated medications well without side effects. Patient had improvement in presenting psychiatric symptomatology during the course of his hospital stay. There was no evidence of any suicidality or homicidality on the inpatient unit. The patient remained in good behavioral control and is medication compliant. On the day of discharge: Patient seen and examined with nurse. Chart reviewed. Case discussed with nursing staff. No behavioral issues overnight. Case discussed with counselor. Counselor has reached out the patient's mother who reportedly has no safety concerns about the patient being discharged today. She is reportedly comfortable with having the patient return home today. On my examination today , the patient is requesting discharge from the inpatient psychiatric unit today. He denies any suicidal or homicidal ideation, intent or plan on direct questioning and contracts for safety. I can elicit no depressive or hypomanic/ manic symptoms in this patient at this time. He denies any audiovisual hallucinations. I can elicit no delusional material. There is no evidence of any impairment in reality construction. He denies side effects from medications and is pleased to be back on his full prescribed doses. He reports that he usually has a lithium level around 0.7 when he is on therapeutic doses of medication. He has no physical complaints. Suicide and violence risk assessment on day of discharge both suggest lower imminent risk from mental illness, and the patient's level of function is adequate for outpatient care. Patient does not meet criteria for involuntary psychiatric hospitalization. He is requesting discharge from the inpatient psychiatric unit today, and I have no basis to retain him over his objection. Patient will be discharged home today with psychiatric follow-up as arranged by counselor. Patient is also to follow-up with primary care. I have counseled the patient to abstain from substances of abuse and have recommended that he pursue chemical dependency evaluation and treatment on an outpatient basis. I have counseled the patient regarding warning signs for need to return to the psychiatric emergency room as part of a general safety plan. Results Blood Pressure 100 / 62 Vital Signs Date Time Temp Pulse Resp B/P (MAP) Pulse Ox O2 Delivery O2 Flow Rate FiO2 12/24/17 05:31 98.2 70 16 100/62 (75) 97 Laboratory Tests Test 12/24/17 05:47 Laboratory Results Test 12/19/17 06:54 12/24/17 05:47 Cholesterol Level 183 MG/DL (120-200) HDL Cholesterol 46.3 MG/DL (40.0-60.0) Hemoglobin A1c 5.2 % (4.3-6.0) LDL Cholesterol 117 MG/DL (0-99) Triglycerides Level 99 MG/DL (42-150) [place] Level 0.7 MEQ/L (0.5-1.5) Summary of Procedures None done Imaging Last Impressions Chest X-Ray 12/19/17 0000 Signed Impressions: Service Date/Time: Tuesday, December 19, 2017 13:35 - CONCLUSION: No acute disease. Dale Flores MD FACR Pending results at discharge: No Medications # of Antipsychotic meds at D/C: 1 Approp Antipsych med options 1 - Minimum of three failed multiple trials of monotherapy. 2 - Documented plan to taper to monotherapy due to previous use of multiple meds OR cross-taper in progress at D/C. 3 - Documentation of augmentation of Clozapine. 4 - Justification other than those listed in allowable values 1-3, document here : Discharge Discharge Date: Dec 24, 2017 Discharge Diagnosis: (1) Adjustment disorder with mixed disturbance of emotions and conduct Diagnosis: Principal (resolved) ICD Code: F43.25 - Adjustment disorder with mixed disturbance of emotions and conduct (2) Polysubstance abuse Diagnosis: Secondary (counseled to quit) ICD Code: F19.10 - Other psychoactive substance abuse, uncomplicated (3) Bipolar 1 disorder Diagnosis: Secondary (stable) ICD Code: F31.9 - Bipolar I disorder Status: Acute Pt Condition on Discharge: Stable Discharge Disposition: Discharge Home Discharge Instructions Diet Instructions: As Tolerated, No Restrictions Activities you can perform: Weight Bearing as [place] Scheduled Appointment: Cesar Marchman Act Appointment Date: Dec 25, 2017 Appointment Time: 730am New Medications: Buspirone (Buspirone) 10 Mg Tab 15 MG PO TID for Mental Health, #1 TAB 0 Refills Patient has adequate supply at home. Order is to update med rec only. Duloxetine DR (Duloxetine DR) 60 Mg Capdr 60 MG PO HS for Mental Health, #1 CAP 0 Refills Patient has adequate supply at home. Order is to update med rec only. [place] Carbonate ([place] Carbonate) 300 Mg Tab 300 MG PO DAILY for Mental Health, #1 TAB 0 Refills Patient has adequate supply at home. Order is to update med rec only. [place] Carbonate ([place] Carbonate) 300 Mg Cap 600 MG PO HS for Mental Health, #1 CAP 0 Refills Patient has adequate supply at home. Order is to update med rec only. Quetiapine (Quetiapine) 200 Mg Tab 800 MG PO HS for Mental Health, #1 TAB 0 Refills Patient has adequate supply at home. Order is to update med rec only. Trazodone (Trazodone) 50 Mg Tab 400 MG PO HS for Mental Health, #1 TAB 0 Refills Patient has adequate supply at home. Order is to update med rec only. Continued Medications: Albuterol 18 GM Inh (Ventolin Hfa 18 GM Inh) 90 Mcg/Act Aer 2 PUFF INH Q4H PRN for WHEEZING, #1 INHALER 0 Refills Atorvastatin (Atorvastatin) 40 Mg Tab 40 MG PO DAILY for Cholesterol Management, #30 TAB 0 Refills Benzonatate (Tessalon Perles) 100 Mg Cap 100 MG PO TID PRN for COUGH, #[address] CAP [address] (Duloxetine DR) 30 Mg Capdr 30 MG PO DAILY, #30 CAP 0 Refills Ibuprofen (Ibuprofen) 800 Mg Tab 800 MG PO Q8H PRN for Pain/Inflammation, #30 TAB Nicotine (Eq Nicotine) 21 Mg/24 Hour Dis 1 PATCH T-DERMAL DAILY for SMOKING, #30 PATCH Sildenafil (Viagra) 100 Mg Tab 100 MG PO DAILY PRN for ERECTILE DYSFUNCTION, #30 TAB 0 Refills Valbenazine (Ingrezza) 80 Mg Capsule 80 MG PO DAILY, #30 CAP 0 Refills Discontinued Medications: Buspirone (Buspirone) 10 Mg Tab 10 MG PO TID for Anxiety, #30 TAB 0 Refills Diphenhydramine HCl (Benadryl Allergy) 25 Mg Tablet 25 MG PO QID PRN for ALLERGIC REACTION, #20 Orphenadrine ER 12 HR (Orphenadrine CR) 100 Mg Tab 100 MG PO Q12HR for Muscle spasm, #10 TAB Quetiapine (Quetiapine) 100 Mg Tab 100 MG PO HS for Psychosis, #30 TAB Trazodone (Trazodone) 50 Mg Tab 50 MG PO HS for Psychosis, #30 TAB Discharge Time > 30 minutes Mental Status Examination Appearance: Appropriate Consciousness: Alert Orientation: x4 Motor Activity: Normal gait, Other (no new motor abnormalities noted. TD decreased now that he is back on Ingrezza. No signs of withdrawal noted.) Speech: Unremarkable Language: Adequate Fund of Knowledge: Adequate Attention and Concentration: Adequate Memory: Unremarkable Mood: Appropriate Affect: Appropriate Thought Process & Associations: Intact, Logical, Goal directed, Linear Thought Content: Appropriate Hallucination Type: None Delusion Type: None Suicidal Ideation: No Suicidal Plan: No Suicidal Intention: No Homicidal Ideation: No Homicidal Plan: No Homicidal Intention: No Insight: Adequate Judgment: Adequate Discharge/Advance Care Plan Health Problems: (1) Adjustment disorder with mixed disturbance of emotions and conduct (2) Polysubstance abuse (3) Bipolar 1 disorder Goals to promote your health * To prevent worsening of your condition and complications * To maintain your health at the optimal level Directions to meet your goals Take your medications as prescribed Follow your dietary instruction Follow activity as directed Keep your appointments as scheduled Take your immunizations and boosters as scheduled If your symptoms worsen call your PCP, if no PCP go to Urgent Care Center or Emergency Room For 14/05 questions related to your inpatient stay or results of tests pending at discharge, please contact Dr. Hunter Stark at Smoking is Dangerous to Your Health. Avoid second hand smoking Hunter Stark MD Dec 24, 2017 14:59
== END 2017-12-24 16:05 | disposition home or self-care (01) | DRG 882 ==
LOC: H260 11:22
PROVIDERS: ADMIT Psychiatry & Neurology Psychiatry; ATTEND Psychiatry & Neurology Psychiatry
DX: F43.25 Adjustment disorder with mixed disturbance of emotions and conduct (principal); F31.9 Bipolar disorder, unspecified; F41.9 Anxiety disorder, unspecified; R44.1 Visual hallucinations; F17.210 Nicotine dependence, cigarettes, uncomplicated; F10.10 Alcohol abuse, uncomplicated; J40 Bronchitis, not specified as acute or chronic; J30.9 Allergic rhinitis, unspecified; F19.10 Other psychoactive substance abuse, uncomplicated; Z91.5 Personal history of self-harm
CPT/HCPCS: 71046; 80048; 80061; 80178; 83036; 84443